=== PATIENT | female | born 1995 | race Caucasian/White ===

== ENCOUNTER 2018-03-26 17:38 | Emergency (ER) | payer OTHER, MEDICAID ==
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
--- NOTE | 2018-03-27 08:52 | CR ---
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 Site : 1995 Study: XRay Spine Cervical [id number]/30/2018 8:17:38 PM Ordering Physician: Ana Henley Final Report: INDICATION: Neck pain, bilateral upper extremity tingling, numbness, no injury TECHNIQUE: Cervical spine radiograph 4 views COMPARISON: None FINDINGS: Bones: No acute fractures or aggressive bone lesions are identified. Alignment is normal. Discs: The disc spaces are unremarkable in appearance. The facet joints are unremarkable. Soft tissue: Unremarkable. No radiopaque foreign bodies are seen. IMPRESSION: 1. No acute osseous injuries or abnormalities are noted. Dictated by Dino Wagner MD @ 03/26/2018 8:22:14 PM Dictated by: Dino Wagner MD @ 03/26/2018 20:22:19 (Electronic Signature) Report Signed by Proxy. CHACHO
--- NOTE | 2018-03-27 08:53 | CR ---
EXAM DATE: 03/26/18 PATIENT'S AGE: 22 Patient: DALILA BROWNING Facility: [place], [place] Site . Site : 1995 Study: XRay Spine Thoracic [id number]/30/2018 8:18:04 PM Ordering Physician: Ana Henley Final Report: INDICATION: Back Pain, no injury TECHNIQUE: Thoracic spine radiograph 2 views COMPARISON: None FINDINGS: Bones: No acute fractures or aggressive bone lesions are identified. Alignment is normal. Discs: The disc spaces are unremarkable in appearance. The facet joints are unremarkable. Soft tissues: Unremarkable. No radiopaque foreign bodies are seen. IMPRESSION: 1. No acute osseous injuries or abnormalities are noted. Dictated by: Dino Wagner MD @ 03/26/2018 20:23:02 (Electronic Signature) Report Signed by Proxy. [facility] HOSPITALWilliams
== END 2018-03-26 21:20 | disposition home or self-care (01) ==
LOC: MW.ED 17:38
DX: M54.6 Pain in thoracic spine (principal); F41.9 Anxiety disorder, unspecified; F32.9 Major depressive disorder, single episode, unspecified; F17.210 Nicotine dependence, cigarettes, uncomplicated; Z79.899 Other long term (current) drug therapy; Z87.39 Personal history of other diseases of the musculoskeletal system and connective tissue
CPT/HCPCS: 72040; 72040-26; 72070; 72070-26; 81025; 99283

== ENCOUNTER 2018-08-20 17:20 | Emergency (ER) | payer MEDICAID ==
[2018-08-20] MEDS ORDERED: Albuterol/Ipratropium 3.0-0.5 MG/3 ML Neb Soln NEB ONE ×3 (17:26→18:29)
[2018-08-20] MEDS ORDERED: predniSONE 20 MG Tab PO ONE (17:36)
[2018-08-20] MEDS ORDERED: Albuterol/Ipratropium 3.0-0.5 MG/3 ML Neb Soln ONE (17:38)
--- NOTE | 2018-08-20 17:39 | EDM.PDOC ---
ED HPI GENERAL MEDICAL PROBLEM - General Chief Complaint: Respiratory Problem Stated Complaint: PT HAS DIFFICULTY BREATHING Time Seen by Provider: 08/20/18 17:33 - History of Present Illness INITIAL COMMENTS - FREE TEXT/NARRATIVE: HISTORY AND PHYSICAL: History of present illness: Patient's a 22-year-old female history of asthma or shortness of breath and wheezing she states her wheezing is first breath has been unresponsive to her inhaler she denies fever chills nausea vomiting chest pain or other complaints. Review of systems: As per history of present illness and below otherwise all systems reviewed and negative. Past medical history: As per history of present illness and as reviewed below otherwise noncontributory. Surgical history: As per history of present illness and as reviewed below otherwise noncontributory. Social history: No reported history of drug or alcohol abuse. Family history: As per history of present illness and as reviewed below otherwise noncontributory. Physical exam: HEENT: Atraumatic, normocephalic, pupils reactive, negative for conjunctival pallor or scleral icterus, mucous membranes moist, throat clear, neck supple, nontender, trachea midline. Lungs: Markedly diminished with an expiratory wheezing, breath sounds equal bilaterally, chest nontender. Heart: S1S2, regular, negative for clicks, rubs, or JVD. Abdomen: Soft, nondistended, nontender. Negative for masses or hepatosplenomegaly. Negative for costovertebral tenderness. Pelvis: Stable nontender. Genitourinary: Deferred. Rectal: Deferred. Extremities: Atraumatic, negative for cords or calf pain. Neurovascular unremarkable. Neuro: Awake, alert, oriented. Cranial nerves II through XII unremarkable. Cerebellum unremarkable. Motor and sensory unremarkable throughout. Exam nonfocal. Diagnostics: None Therapeutics: Albuterol ipratropium nebulizer prednisone 60 mg by mouth Impression: 1 acute asthmatic exacerbation Definitive disposition and diagnosis as appropriate pending reevaluation and review of above. - Related Data Allergies Allergy/AdvReac Type Severity Reaction Status Date / Time clindamycin Allergy Difficulty Verified 08/20/18 17:29 Breathing sulfamethoxazole Allergy Difficulty Verified 08/20/18 17:29 [From Bactrim] Breathing trimethoprim [From Bactrim] Allergy Difficulty Verified 08/20/18 17:29 Breathing Home Meds: Home Meds Albuterol [IJD: Albuterol HFA] 2 puff .XX 03/26/18 [History] Past Medical History HEENT 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: Allergic Rhinitis Respiratory 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: Asthma Musculoskeletal 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: Fracture, Other (See Below) Other Musculoskeletal History: right foot fx with repair x2 Psychiatric 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: Anxiety, Depression - Infectious Disease History Infectious Disease 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: Chicken Pox Social & Family History - Family History Family Medical History: Noncontributory - Tobacco Use Smoking Status *Q: Light Tobacco Smoker Years of Tobacco use: 3 Packs/Tins Daily: 0.3 Second Hand Smoke Exposure: Yes - Caffeine Use Caffeine Use: Reports: Energy Drinks - Recreational Drug Use Recreational Drug Use: No ED ROS GENERAL - Review of Systems Review Of Systems: ROS reveals no pertinent complaints other than HPI. ED EXAM, GENERAL - Physical Exam Exam: See Below (See dictation) Course - Vital Signs Last Recorded V/S: Last Vital Signs Temp 36.7 C 08/20/18 17:29 Pulse 120 H 08/20/18 18:43 Resp 20 08/20/18 18:43 BP 139/101 H 08/20/18 17:29 Pulse Ox 96 08/20/18 18:43 - Orders/Labs/Meds Orders: Active Orders 24 hr Category Date Time Status RT Aerosol Therapy [RC] ASDIRECTED Care 08/20/18 17:26 Active RT Aerosol Therapy [RC] ASDIRECTED Care 08/20/18 17:40 Active RT Aerosol Therapy [RC] ASDIRECTED Care 08/20/18 18:30 Active Chest 1V Frontal [CR] Stat Exams 08/20/18 18:36 Taken Meds: Medications Discontinued Medications Generic Name Dose Route Start Last Admin Trade Name Jovon PRN Reason Stop Dose Admin Albuterol/Ipratropium 3 ml 08/20/18 17:26 08/20/18 17:40 Duoneb 3.0-0.5 Mg/3 Ml NEB 08/20/18 17:27 3 ml ONETIME ONE Administration Albuterol/Ipratropium 3 ml 08/20/18 17:40 08/20/18 17:41 Duoneb 3.0-0.5 Mg/3 Ml NEB 08/20/18 17:41 3 ml ONETIME ONE Administration Albuterol/Ipratropium Confirm 08/20/18 17:38 08/20/18 17:42 Duoneb 3.0-0.5 Mg/3 Ml Administered 08/20/18 17:39 Not Given Dose 3 ml .ROUTE .STK-MED ONE Albuterol/Ipratropium 3 ml 08/20/18 18:29 08/20/18 18:33 Duoneb 3.0-0.5 Mg/3 Ml NEB 08/20/18 18:30 3 ml ONETIME ONE Administration Lorazepam 1 mg 08/20/18 18:35 08/20/18 18:41 Ativan IVPUSH 08/20/18 18:36 1 mg ONETIME ONE Administration Prednisone 40 mg 08/20/18 17:36 08/20/18 17:40 Prednisone PO 08/20/18 17:37 40 mg ONETIME ONE Administration Departure - Departure Time of Disposition: 20:17 Disposition: Home, Self-Care 01 Condition: Good Clinical Impression: Exacerbation of asthma - Discharge Information *PRESCRIPTION DRUG MONITORING PROGRAM REVIEWED*: Not Applicable *COPY OF PRESCRIPTION DRUG MONITORING REPORT IN PATIENT LEENA: Not Applicable Forms: ED Department Discharge Additional Instructions: The following information is given to patients seen in the emergency department who are being discharged to home. This information is to outline your options for follow-up care. We provide all patients seen in our emergency department with a follow-up referral. The need for follow-up, as well as the timing and circumstances, are variable depending upon the specifics of your emergency department visit. If you don't have a primary care physician on staff, we will provide you with a referral. We always advise you to contact your personal physician following an emergency department visit to inform them of the circumstance of the visit and for follow-up with them and/or the need for any referrals to a consulting specialist. The emergency department will also refer you to a specialist when appropriate. This referral assures that you have the opportunity for followup care with a specialist. All of these measure are taken in an effort to provide you with optimal care, which includes your followup. Under all circumstances we always encourage you to contact your private physician who remains a resource for coordinating your care. When calling for followup care, please make the office aware that this follow-up is from your recent emergency room visit. If for any reason you are refused follow-up, please contact the [facility] emergency department at and asked to speak to the emergency department charge nurse. Albuterol as directed Medrol as prescribed follow-up primary medical doctor 1-2 days and return as needed as discussed - My Orders Last 24 Hours: My Active Orders 08/20/18 17:40 RT Aerosol Therapy [RC] ASDIRECTED 08/20/18 18:30 RT Aerosol Therapy [RC] ASDIRECTED 08/20/18 18:36 Chest 1V Frontal [CR] Stat - Assessment/Plan Last 24 Hours: My Active Orders 08/20/18 17:40 RT Aerosol Therapy [RC] ASDIRECTED 08/20/18 18:30 RT Aerosol Therapy [RC] ASDIRECTED 08/20/18 18:36 Chest 1V Frontal [CR] Stat
[2018-08-20] MEDS ORDERED: LORazepam 2 MG/ML SDV IVPUSH ONE (18:35)
--- NOTE | 2018-08-21 10:21 | CR ---
EXAM DATE: 08/20/18 PATIENT'S AGE: 22 Patient: DALILA BROWNING Facility: [place], [place] Site . Site : 1995 Study: XRay Chest [id number]/24/2018 6:54:59 PM Ordering Physician: Ana Henley Final Report: INDICATION: Shortness of breath. TECHNIQUE: Single view of the chest. COMPARISON: None. FINDINGS: Heart and mediastinum are normal. Lungs are clear. No consolidations or pleural effusions are identified. Trachea is midline. IMPRESSION: No evidence of acute disease. Dictated by Miguelito Membreno MD @ Aug 20 2018 7:05PM (Electronic Signature) Report Signed by Proxy. CHACHO
== END 2018-08-20 20:30 | disposition home or self-care (01) ==
LOC: MW.ED 17:20
DX: J45.901 Unspecified asthma with (acute) exacerbation (principal); F17.210 Nicotine dependence, cigarettes, uncomplicated; F32.9 Major depressive disorder, single episode, unspecified; F41.9 Anxiety disorder, unspecified; Z88.1 Allergy status to other antibiotic agents; Z88.2 Allergy status to sulfonamides; Z79.899 Other long term (current) drug therapy
CPT/HCPCS: 71045; 96374; 99285; A9270; J2060; J7620-GY

== ENCOUNTER 2018-08-20 22:45 | Emergency (ER) | payer MEDICAID ==
[~2018-08-20 22:45] MED LIST: Albuterol/Ipratropium 3.0-0.5 MG/3 ML Neb Soln ONE
--- NOTE | 2018-08-20 23:46 | EDM.PDOC ---
ED HPI GENERAL MEDICAL PROBLEM - General Chief Complaint: Respiratory Problem Stated Complaint: PT HAS DIFFICULTY BREATHING Time Seen by Provider: 08/20/18 23:00 - History of Present Illness INITIAL COMMENTS - FREE TEXT/NARRATIVE: HISTORY AND PHYSICAL: History of present illness: Patient 22-year-old female who was seen earlier in the emergency department for an asthmatic exacerbation returns with shortness of breath and wheezing Review of systems: As per history of present illness and below otherwise all systems reviewed and negative. Past medical history: As per history of present illness and as reviewed below otherwise noncontributory. Surgical history: As per history of present illness and as reviewed below otherwise noncontributory. Social history: No reported history of drug or alcohol abuse. Family history: As per history of present illness and as reviewed below otherwise noncontributory. Physical exam: HEENT: Atraumatic, normocephalic, pupils reactive, negative for conjunctival pallor or scleral icterus, mucous membranes moist, throat clear, neck supple, nontender, trachea midline. Lungs: Slightly diminished in extra wheezing noted breath sounds equal bilaterally, chest nontender. Heart: S1S2, regular, negative for clicks, rubs, or JVD. Abdomen: Soft, nondistended, nontender. Negative for masses or hepatosplenomegaly. Negative for costovertebral tenderness. Pelvis: Stable nontender. Genitourinary: Deferred. Rectal: Deferred. Extremities: Atraumatic, negative for cords or calf pain. Neurovascular unremarkable. Neuro: Awake, alert, oriented. Cranial nerves II through XII unremarkable. Cerebellum unremarkable. Motor and sensory unremarkable throughout. Exam nonfocal. Diagnostics: None Therapeutics: Albuterol ipratropium nebulizer and BiPAP Impression: 1 asthmatic exacerbation Definitive disposition and diagnosis as appropriate pending reevaluation and review of above. - Related Data Allergies Allergy/AdvReac Type Severity Reaction Status Date / Time clindamycin Allergy Difficulty Verified 08/20/18 22:51 Breathing sulfamethoxazole Allergy Difficulty Verified 08/20/18 22:51 [From Bactrim] Breathing trimethoprim [From Bactrim] Allergy Difficulty Verified 08/21/18 17:41 Breathing Home Meds: Home Meds Albuterol [IJD: Albuterol HFA] 2 puff INH ASDIRECTED PRN 03/26/18 [History] Dextroamphetamine/Amphetamine [Adderall Xr 20 mg Capsule] 20 mg PO DAILY [History] LORazepam [Ativan] 2 mg PO BID PRN 08/21/18 [History] Lurasidone HCl [Latuda] 40 mg PO DAILY 08/21/18 [History] l-Norgest/E.estradion-E.estrad [Seasonique 0.15-0.03-0.01] 1 each PO DAILY 08/21 [History] Past Medical History HEENT 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: Allergic Rhinitis Respiratory 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: Asthma Musculoskeletal 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: Fracture, Other (See Below) Other Musculoskeletal History: right foot fx with repair x2 Psychiatric 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: Anxiety, Depression - Infectious Disease History Infectious Disease 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: None Social & Family History - Family History Family Medical History: Noncontributory - Tobacco Use Smoking Status *Q: Current Every Day Smoker Years of Tobacco use: 3 Packs/Tins Daily: 0.1 - Caffeine Use Caffeine Use: Reports: Energy Drinks - Recreational Drug Use Recreational Drug Use: No ED ROS GENERAL - Review of Systems Review Of Systems: ROS reveals no pertinent complaints other than HPI. ED EXAM, GENERAL - Physical Exam Exam: See Below (See dictation) Course - Vital Signs Last Recorded V/S: Last Vital Signs Temp 36.6 C 08/20/18 22:51 Pulse 112 H 08/21/18 03:25 Resp 20 08/21/18 03:25 BP 133/75 08/21/18 03:25 Pulse Ox 95 08/21/18 03:25 - Orders/Labs/Meds Labs: Laboratory Tests 08/20/18 Range/Units 23:25 ABG pH 7.405 (7.35-7.45) ABG pCO2 33 L (35-45) mmHG ABG pO2 77 (75-100) mmHG ABG HCO3 20 L (22-26) mEq/L ABG Total CO2 18.2 ABG Base Excess -3.5 L (-2.0-2.0) Meds: Medications Discontinued Medications Generic Name Dose Route Start Last Admin Trade Name Freq PRN Reason Stop Dose Admin Albuterol/Ipratropium 3 ml 08/21/18 01:07 08/21/18 01:15 Duoneb 3.0-0.5 Mg/3 Ml NEB 08/21/18 01:08 3 ml ONETIME ONE Administration Albuterol/Ipratropium Confirm 08/20/18 22:44 Duoneb 3.0-0.5 Mg/3 Ml Administered 08/20/18 22:45 Dose 3 ml .ROUTE .STK-MED ONE Methylprednisolone Sodium Succinate 125 mg 08/21/18 02:20 08/21/18 02:33 Solu-Medrol IM 08/21/18 02:21 125 mg ONETIME ONE Administration Departure - Departure Time of Disposition: 08:11 Disposition: Home, Self-Care 01 Clinical Impression: Dyspnea - Discharge Information *PRESCRIPTION DRUG MONITORING PROGRAM REVIEWED*: Not Applicable *COPY OF PRESCRIPTION DRUG MONITORING REPORT IN PATIENT LEENA: Not Applicable Instructions: Shortness of Breath, Adult, [id number] Referrals: PCP,None [Primary Care Provider] - Forms: ED Department Discharge
[2018-08-21] MEDS ORDERED: Albuterol/Ipratropium 3.0-0.5 MG/3 ML Neb Soln NEB ONE (01:07)
[2018-08-21] MEDS ORDERED: methylPREDNISolone Sodium Succinate 125 MG/2 ML SDV IM ONE (02:20)
== END 2018-08-21 03:30 | disposition home or self-care (01) ==
LOC: MW.ED 22:45
DX: J45.901 Unspecified asthma with (acute) exacerbation (principal); F17.210 Nicotine dependence, cigarettes, uncomplicated; Z88.1 Allergy status to other antibiotic agents; Z88.2 Allergy status to sulfonamides
CPT/HCPCS: 36600; 82803; 94660; 96374; 99285; J2930; J7620-GY

== ENCOUNTER 2018-08-21 17:30 | Observation (INO) | payer MEDICAID ==
[2018-08-21] MEDS ORDERED: Albuterol/Ipratropium 3.0-0.5 MG/3 ML Neb Soln NEB ONE (17:48)
[2018-08-21] MEDS ORDERED: methylPREDNISolone Sodium Succinate 125 MG/2 ML SDV IVPUSH ONE (17:48)
[2018-08-21] MEDS ORDERED: Sodium Chloride 0.9% 1,000 ML IV ONE (17:49)
[2018-08-21] MEDS ORDERED: Magnesium Sulfate/Water 2 GM in Premix Bag 1 BAG IV ONE (17:54)
[2018-08-21] MEDS ORDERED: LORazepam 2 MG/ML SDV IVPUSH ONE (17:54)
--- NOTE | 2018-08-21 17:57 | EDM.PDOC ---
ED HPI GENERAL MEDICAL PROBLEM - General Chief Complaint: Respiratory Problem Stated Complaint: DIFF BREATHING/FAST HEARTBEAT Time Seen by Provider: 08/21/18 17:55 Source of Information: Reports: Patient - History of Present Illness INITIAL COMMENTS - FREE TEXT/NARRATIVE: HISTORY AND PHYSICAL: History of present illness: []Patient presents with asthma exacerbation she is been in on the and through the night on the On a BiPAP f a brief. She presents with shortness of breath and wheeze again she does have nebs and prednisone at home she is essentially failed conservative management No fever nausea vomiting chills sweats Review of systems: As per history of present illness and below otherwise all systems reviewed and negative. Past medical history: As per history of present illness and as reviewed below otherwise noncontributory. Surgical history: As per history of present illness and as reviewed below otherwise noncontributory. Social history: No reported history of drug or alcohol abuse. Family history: As per history of present illness and as reviewed below otherwise noncontributory. Physical exam: HEENT: Atraumatic, normocephalic, pupils reactive, negative for conjunctival pallor or scleral icterus, mucous membranes moist, throat clear, neck supple, nontender, trachea midline. Lungs: Expiratory wheeze throughout, breath sounds equal bilaterally, chest nontender. Heart: S1S2, regular, negative for clicks, rubs, or JVD. Abdomen: Soft, nondistended, nontender. Negative for masses or hepatosplenomegaly. Negative for costovertebral tenderness. Pelvis: Stable nontender. Genitourinary: Deferred. Rectal: Deferred. Extremities: Atraumatic, negative for cords or calf pain. Neurovascular unremarkable. Neuro: Awake, alert, oriented. Cranial nerves II through XII unremarkable. Cerebellum unremarkable. Motor and sensory unremarkable throughout. Exam nonfocal. Diagnostics: [CBC CMP UA hCG Chest 1 view ABG ] Therapeutics: [ 1 L normal saline bolus Magnesium 2 mg IV Ativan 1 mg IV DuoNeb Solu-Medrol 125 mg IV ] Impression: [ asthma exacerbation ] Definitive disposition and diagnosis as appropriate pending reevaluation and review of above. - Related Data Allergies Allergy/AdvReac Type Severity Reaction Status Date / Time clindamycin Allergy Difficulty Verified 08/20/18 22:51 Breathing sulfamethoxazole Allergy Difficulty Verified 08/20/18 22:51 [From Bactrim] Breathing trimethoprim [From Bactrim] Allergy Difficulty Verified 08/21/18 17:41 Breathing Home Meds: Home Meds Albuterol [IJD: Albuterol HFA] 2 puff INH ASDIRECTED PRN 03/26/18 [History] Past Medical History HEENT 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: Allergic Rhinitis Respiratory 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: Asthma Musculoskeletal 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: Fracture, Other (See Below) Other Musculoskeletal History: right foot fx with repair x2 Psychiatric 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: Anxiety, Depression - Infectious Disease History Infectious Disease 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: None Social & Family History - Family History Family Medical History: Noncontributory - Tobacco Use Smoking Status *Q: Current Every Day Smoker Years of Tobacco use: 3 Packs/Tins Daily: 1 - Caffeine Use Caffeine Use: Reports: Energy Drinks - Recreational Drug Use Recreational Drug Use: No ED ROS GENERAL - Review of Systems Review Of Systems: See Below ED EXAM, GENERAL - Physical Exam Exam: See Below Course - Vital Signs Last Recorded V/S: Last Vital Signs Temp 98.5 F 08/21/18 17:30 Pulse 138 H 08/21/18 17:30 Resp 20 08/21/18 17:30 BP 141/75 H 08/21/18 17:30 Pulse Ox 95 08/21/18 17:30 - Orders/Labs/Meds Orders: Active Orders 24 hr Category Date Time Status EKG Documentation Completion [RC] STAT Care 08/21/18 17:44 Active RT Aerosol Therapy [RC] ASDIRECTED Care 08/21/18 17:48 Active Chest 1V Frontal [CR] Stat Exams 08/21/18 17:48 Ordered COMPREHENSIVE METABOLIC PN,CMP [CHEM] Stat Lab 08/21/18 18:15 Received UA W/MICROSCOPIC [URIN] Stat Lab 08/21/18 17:51 Ordered Magnesium Sulfate/Water [Magnesium Sulfate 2 GM in Med 08/21/18 17:54 Active Water 50 ML] 2 gm Premix Bag 1 bag IV ONETIME Sodium Chloride 0.9% [Normal Saline] 1,000 ml Med 08/21/18 17:49 Active IV STAT Medication Orders Sodium Chloride (Normal Saline) 1,000 mls @ 999 mls/hr IV STAT ONE Stop: 08/21/18 18:49 Last Admin: 08/21/18 18:19 Dose: 300 mls/hr Magnesium Sulfate 2 gm/ Premix 50 mls @ 25 mls/hr IV ONETIME ONE Stop: 08/21/18 19:53 Last Admin: 08/21/18 18:24 Dose: 25 mls/hr Labs: Laboratory Tests 08/21/18 08/21/18 Range/Units 18:05 18:15 WBC 21.50 H (4.0-11.0) K/uL RBC 4.28 L (4.30-5.90) M/uL Hgb 13.5 (12.0-16.0) g/dL Hct 39.1 (36.0-46.0) % MCV 91.4 (80.0-98.0) fL MCH 31.5 (27.0-32.0) pg MCHC 34.5 (31.0-37.0) g/dL RDW Std Deviation 41.4 (28.0-62.0) fl RDW Coeff of Dillon 12 (11.0-15.0) % Plt Count 277 (150-400) K/uL MPV 10.80 (7.40-12.00) fL Neut % (Auto) 85.2 H (48.0-80.0) % Lymph % (Auto) 3.8 L (16.0-40.0) % [place] % (Auto) 11.0 (0.0-15.0) % Eos % (Auto) 0.0 (0.0-7.0) % Baso % (Auto) 0.0 (0.0-1.5) % Neut # (Auto) 18.3 H (1.4-5.7) K/uL Lymph # (Auto) 0.8 (0.6-2.4) K/uL [place] # (Auto) 2.4 H (0.0-0.8) K/uL Eos # (Auto) 0.0 (0.0-0.7) K/uL Baso # (Auto) 0.0 (0.0-0.1) K/uL Nucleated RBC % 0.0 /100WBC Nucleated RBCs # 0 K/uL ABG pH 7.442 (7.35-7.45) ABG pCO2 34 L (35-45) mmHG ABG pO2 209 H (75-100) mmHG ABG HCO3 23 (22-26) mEq/L ABG Total CO2 24 ABG Base Excess -1 (-2.0-2.0) Meds: Medications Generic Name Dose Route Start Last Admin Trade Name Freq PRN Reason Stop Dose Admin Sodium Chloride 1,000 mls @ 999 mls/hr 08/21/18 17:49 08/21/18 18:19 Normal Saline IV 08/21/18 18:49 300 mls/hr STAT ONE Administration Magnesium Sulfate 2 gm/ Premix 50 mls @ 25 mls/hr 08/21/18 17:54 08/21/18 18: 24 IV 08/21/18 19:53 25 mls/hr ONETIME ONE Administration Discontinued Medications Generic Name Dose Route Start Last Admin Trade Name Freq PRN Reason Stop Dose Admin Albuterol/Ipratropium 3 ml 08/21/18 17:48 08/21/18 18:00 Duoneb 3.0-0.5 Mg/3 Ml NEB 08/21/18 17:49 3 ml ONETIME ONE Administration Lorazepam 1 mg 08/21/18 17:54 08/21/18 18:24 Ativan IVPUSH 08/21/18 17:55 1 mg ONETIME ONE Administration Methylprednisolone Sodium Succinate 125 mg 08/21/18 17:48 08/21/18 18:00 Solu-Medrol IVPUSH 08/21/18 17:49 125 mg ONETIME ONE Administration Departure - Departure Time of Disposition: 18:46 Disposition: Refer to Observation Condition: Fair Clinical Impression: Asthma exacerbation - Discharge Information Referrals: PCP,None [Primary Care Provider] - Forms: ED Department Discharge - My Orders Last 24 Hours: My Active Orders 08/21/18 17:44 EKG Documentation Completion [RC] STAT 08/21/18 17:48 RT Aerosol Therapy [RC] ASDIRECTED Chest 1V Frontal [CR] Stat 08/21/18 17:49 Sodium Chloride 0.9% [Normal Saline] 1,000 ml IV STAT 08/21/18 17:51 UA W/MICROSCOPIC [URIN] Stat 08/21/18 17:54 Magnesium Sulfate/Water [Magnesium Sulfate 2 GM in Water 50 ML] 2 gm Premix Bag 1 bag IV ONETIME 08/21/18 18:15 COMPREHENSIVE METABOLIC PN,CMP [CHEM] Stat - Assessment/Plan Last 24 Hours: My Active Orders 08/21/18 17:44 EKG Documentation Completion [RC] STAT 08/21/18 17:48 RT Aerosol Therapy [RC] ASDIRECTED Chest 1V Frontal [CR] Stat 08/21/18 17:49 Sodium Chloride 0.9% [Normal Saline] 1,000 ml IV STAT 08/21/18 17:51 UA W/MICROSCOPIC [URIN] Stat 08/21/18 17:54 Magnesium Sulfate/Water [Magnesium Sulfate 2 GM in Water 50 ML] 2 gm Premix Bag 1 bag IV ONETIME 08/21/18 18:15 COMPREHENSIVE METABOLIC PN,CMP [CHEM] Stat
[2018-08-21] MEDS ORDERED: Sodium Chloride 0.9% 2.5 ML Syringe FLUSH PRN (18:56)
[2018-08-21] MEDS ORDERED: Ondansetron 4 MG Tab.DIS PO PRN (18:56)
[2018-08-21] MEDS ORDERED: Morphine 2 MG/ML Syringe IVPUSH PRN (18:56)
[2018-08-21] MEDS ORDERED: oxyCODONE 5 MG Tab PO PRN (18:56)
[2018-08-21] MEDS ORDERED: Temazepam 15 MG Cap PO PRN (18:56)
[2018-08-21] MEDS ORDERED: Docusate Sodium 100 MG Cap PO PRN (18:56)
[2018-08-21] MEDS ORDERED: Sodium Chloride 0.9% 10 ML Syringe FLUSH PRN (18:56)
[2018-08-21] MEDS ORDERED: Acetaminophen 325 MG Tab PO PRN (18:56)
[2018-08-21] MEDS ORDERED: Albuterol 0.083% 2.5 MG/3 ML Neb Soln NEB PRN (18:56)
[2018-08-21 19:03] LABS: CHLORIDE,CL 108 mmol/L (98-107); SODIUM,NA 140 mmol/L (136-145)
[2018-08-22] MEDS: methylPREDNISolone Sodium Succinate 125 MG/2 ML SDV IVPUSH SCH ×2 (01:11→09:07)
[2018-08-22 05:50] LABS: CHLORIDE,CL 111 mmol/L (98-107); SODIUM,NA 141 mmol/L (136-145)
--- NOTE | 2018-08-22 07:28 | PCM.HP ---
<Juanjo Curran - Last Filed: 08/22/18 07:30> H&P History of Present Illness - General Date of Service: 08/22/18 Admit Problem/Dx: Admission Diagnosis/Problem Admission Diagnosis/Problem Asthma Source of Information: Patient History Limitations: Reports: No Limitations - History of Present Illness Initial Comments - Free Text/Narative: 22F with a history of Asthma, Tobacco abuse, ADHD, Depression that presented to the ER last night w/ a chief complaint of shortness of breath that started two days ago. Patient says that she was resting when the symptoms began. She tried giving herself a nebulizer multiple times at home prior to presenting to the ER but the symptoms persisted so she came in. She was admitted because of concerns of poor breath sounds, siginificant wheezing. Patient this morning says that she feels better. She is able to maintain oxygen on room air without difficulty. Complains of a mild cough. When asked about triggers, boyfriend on room says he has been undergoing a construction project in his garage with a boat and thus she has been around all sorts of chemicals and a lot of dust. Patient also smokes cigarettes occasionally. She has also been around a new dog. ER Course: Ativan 1mg IV x1 Solumedrol 125mg x1 Magnesium 2g IV x1 NS bolus CXR unremarkable - Related Data Allergies/Adverse Reactions: Allergies Allergy/AdvReac Type Severity Reaction Status Date / Time clindamycin Allergy Difficulty Verified 08/20/18 22:51 Breathing sulfamethoxazole Allergy Difficulty Verified 08/20/18 22:51 [From Bactrim] Breathing trimethoprim [From Bactrim] Allergy Difficulty Verified 08/21/18 17:41 Breathing Home Medications: Home Meds Albuterol [IJD: Albuterol HFA] 2 puff INH ASDIRECTED PRN 03/26/18 [History] Dextroamphetamine/Amphetamine [Adderall Xr 20 mg Capsule] 20 mg PO DAILY [History] LORazepam [Ativan] 2 mg PO BID PRN 08/21/18 [History] Lurasidone HCl [Latuda] 40 mg PO DAILY 08/21/18 [History] l-Norgest/E.estradion-E.estrad [Seasonique 0.15-0.03-0.01] 1 each PO DAILY 08/21 [History] Budesonide [Pulmicort Flexhaler] 180 mcg IH BID 30 Days #1 aer.pow.ba 08/22/18 [ Rx] Levalbuterol Tartrate [Levalbuterol Tartrate Hfa] 15 gm IH Q4H PRN 30 Days #1 hfa.aer.ad 08/22/18 [Rx] predniSONE [Prednisone] 40 mg PO DAILY 4 Days #8 tablet 08/22/18 [Rx] Past Medical History HEENT 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: Allergic Rhinitis Respiratory 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: Asthma Musculoskeletal 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: Fracture, Other (See Below) Other Musculoskeletal History: right foot fx with repair x2 Psychiatric 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: ADHD, Anxiety, Depression - Infectious Disease History Infectious Disease 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: None Social & Family History - Family History Family Medical History: Noncontributory HEENT: Reports: None Cardiac: Reports: None Respiratory: Reports: None - Tobacco Use Smoking Status *Q: Current Every Day Smoker Years of Tobacco use: 3 Packs/Tins Daily: 1 Second Hand Smoke Exposure: Yes - Caffeine Use Caffeine Use: Reports: Soda - Recreational Drug Use Recreational Drug Use: No H&P Review of Systems - Review of Systems: Review Of Systems: ROS reveals no pertinent complaints other than HPI. Exam - Exam Exam: See Below - Vital Signs Vital Signs: Last Vital Signs Temp 36.6 C 08/22/18 04:00 Pulse 116 H 08/22/18 04:00 Resp 17 08/22/18 04:00 BP 138/83 08/22/18 04:00 Pulse Ox 95 08/22/18 04:00 Weight: 58.4 kg - Exam General: Alert, Oriented, 4 HEENT: PERRLA, Hearing Intact, Mucosa Moist & Clarks, Nares Patent, Normal Nasal Septum, Posterior Pharynx Clear, Conjunctiva Clear, EOMI, EACs Clear, TMs Clear Neck: Supple, Trachea Midline, 2 Lungs: Normal Respiratory Effort, Wheezing. No: Crackles, Rales, Rhonchi Cardiovascular: Regular Rate, Regular Rhythm GI/Abdominal Exam: Normal Bowel Sounds, Soft, Non-Tender, No Organomegaly, No Distention, No Abnormal Bruit, No Mass (Female) Exam: Normal External Exam, Normal Speculum Exam, Normal Bimanual Exam Back Exam: Normal Inspection, Full Range of Motion, NT Extremities: Normal Inspection, Normal Range of Motion, Non-Tender, No Pedal Edema, Normal Capillary Refill Skin: Warm, Dry, Intact Neurological: Cranial Nerves Intact, Reflexes Equal Bilateral Neuro Extensive - Mental Status: Alert, Oriented x3, Normal Mood/Affect, Normal Cognition Neuro Extensive - Motor, Sensory, Reflexes: CN II-XII Intact, Normal Gait, Normal Reflexes Psychiatric: Alert, Normal Affect, Anxious - Patient Data Lab Results Last 24 hrs: Laboratory Results - last 24 hr 08/21/18 08/21/18 08/21/18 Range/Units 18:05 18:15 18:15 WBC 21.50 H (4.0-11.0) K/uL RBC 4.28 L (4.30-5.90) M/uL Hgb 13.5 (12.0-16.0) g/dL Hct 39.1 (36.0-46.0) % MCV 91.4 (80.0-98.0) fL MCH 31.5 (27.0-32.0) pg MCHC 34.5 (31.0-37.0) g/dL RDW Std Deviation 41.4 (28.0-62.0) fl RDW Coeff of Dillon 12 (11.0-15.0) % Plt Count 277 (150-400) K/uL MPV 10.80 (7.40-12.00) fL Neut % (Auto) 85.2 H (48.0-80.0) % Lymph % (Auto) 3.8 L (16.0-40.0) % [place] % (Auto) 11.0 (0.0-15.0) % Eos % (Auto) 0.0 (0.0-7.0) % Baso % (Auto) 0.0 (0.0-1.5) % Neut # (Auto) 18.3 H (1.4-5.7) K/uL Lymph # (Auto) 0.8 (0.6-2.4) K/uL [place] # (Auto) 2.4 H (0.0-0.8) K/uL Eos # (Auto) 0.0 (0.0-0.7) K/uL Baso # (Auto) 0.0 (0.0-0.1) K/uL Nucleated RBC % 0.0 /100WBC Nucleated RBCs # 0 K/uL ABG pH 7.442 (7.35-7.45) ABG pCO2 34 L (35-45) mmHG ABG pO2 209 H (75-100) mmHG ABG HCO3 23 (22-26) mEq/L ABG Total CO2 24 ABG Base Excess -1 (-2.0-2.0) Sodium 140 (136-145) mmol/L Potassium 3.5 (3.5-5.1) mmol/L Chloride 108 H (98-107) mmol/L Carbon Dioxide 20.3 L (21.0-32.0) mmol/L BUN 14 (7.0-18.0) mg/dL Creatinine 0.7 (0.6-1.0) mg/dL Est Cr Clr Drug Dosing 94.32 mL/min Estimated GFR (MDRD) > 60.0 ml/min Glucose 114 H (74-106) mg/dL Calcium 8.9 (8.5-10.1) mg/dL Total Bilirubin 0.2 (0.2-1.0) mg/dL AST 14 L (15-37) IU/L ALT 18 (14-63) IU/L Alkaline Phosphatase 63 (46-116) U/L Total Protein 7.0 (6.4-8.2) g/dL Albumin 3.5 (3.4-5.0) g/dL Globulin 3.5 (2.0-3.5) g/dL Albumin/Globulin Ratio 1.0 L (1.3-2.8) 08/22/18 08/22/18 Range/Units 05:25 05:25 WBC 19.07 H (4.0-11.0) K/uL RBC 4.00 L (4.30-5.90) M/uL Hgb 12.4 (12.0-16.0) g/dL Hct 37.0 (36.0-46.0) % MCV 92.5 (80.0-98.0) fL MCH 31.0 (27.0-32.0) pg MCHC 33.5 (31.0-37.0) g/dL RDW Std Deviation 42.3 (28.0-62.0) fl RDW Coeff of Dillon 13 (11.0-15.0) % Plt Count 269 (150-400) K/uL MPV 10.50 (7.40-12.00) fL Neut % (Auto) 92.3 H (48.0-80.0) % Lymph % (Auto) 3.6 L (16.0-40.0) % [place] % (Auto) 4.1 (0.0-15.0) % Eos % (Auto) 0.0 (0.0-7.0) % Baso % (Auto) 0.0 (0.0-1.5) % Neut # (Auto) 17.6 H (1.4-5.7) K/uL Lymph # (Auto) 0.7 (0.6-2.4) K/uL [place] # (Auto) 0.8 (0.0-0.8) K/uL Eos # (Auto) 0.0 (0.0-0.7) K/uL Baso # (Auto) 0.0 (0.0-0.1) K/uL Nucleated RBC % 0.0 /100WBC Nucleated RBCs # 0 K/uL ABG pH (7.35-7.45) ABG pCO2 (35-45) mmHG ABG pO2 (75-100) mmHG ABG HCO3 (22-26) mEq/L ABG Total CO2 ABG Base Excess (-2.0-2.0) Sodium 141 (136-145) mmol/L Potassium 4.8 (3.5-5.1) mmol/L Chloride 111 H (98-107) mmol/L Carbon Dioxide 23.4 (21.0-32.0) mmol/L BUN 13 (7.0-18.0) mg/dL Creatinine 0.6 (0.6-1.0) mg/dL Est Cr Clr Drug Dosing 110.04 mL/min Estimated GFR (MDRD) > 60.0 ml/min Glucose 139 H (74-106) mg/dL Calcium 8.6 (8.5-10.1) mg/dL Total Bilirubin (0.2-1.0) mg/dL AST (15-37) IU/L ALT (14-63) IU/L Alkaline Phosphatase (46-116) U/L Total Protein (6.4-8.2) g/dL Albumin (3.4-5.0) g/dL Globulin (2.0-3.5) g/dL Albumin/Globulin Ratio (1.3-2.8) Result Diagrams: 08/22/18 05:25 08/22/18 05:25 Problem List Initiated/Reviewed/Updated: Yes Orders Last 24hrs: Active Orders 24 hr Category Date Time Status Patient Status [ADT] Routine ADT 08/21/18 18:56 Active Ambulate [RC] PER UNIT ROUTINE Care 08/21/18 18:58 Active Communication Order [RC] ROUTINE Care 08/21/18 20:27 Active EKG Documentation Completion [RC] STAT Care 08/21/18 17:44 Active Oxygen Therapy [RC] PRN Care 08/21/18 18:56 Active Pulse Oximetry [RC] PRN Care 08/21/18 18:57 Active RT Aerosol Therapy [RC] ASDIRECTED Care 08/21/18 17:48 Active RT Aerosol Therapy [RC] ASDIRECTED Care 08/21/18 19:00 Active Up ad Yasmeen [RC] ASDIRECTED Care 08/21/18 18:56 Active Vital Signs [RC] Q4H Care 08/21/18 18:56 Active Regular Diet [DIET] Diet 08/22/18 Breakfast Active Chest 1V Frontal [CR] Stat Exams 08/21/18 17:48 Taken ABG [BLOOD GAS ARTERIAL] [BG] Routine Lab 08/21/18 19:26 Ordered UA W/MICROSCOPIC [URIN] Stat Lab 08/21/18 17:51 Ordered Acetaminophen [Tylenol] Med 08/21/18 18:56 Active 650 mg PO Q4H PRN Albuterol [Proventil Neb Soln] Med 08/21/18 18:56 Active 2.5 mg NEB Q2H PRN Docusate Sodium [Colace] Med 08/21/18 18:56 Active 100 mg PO BID PRN Morphine Med 08/21/18 18:56 Active 2 mg IVPUSH Q2H PRN Ondansetron [Zofran ODT] Med 08/21/18 18:56 Active 4 mg PO Q6H PRN Sodium Chloride 0.9% [Saline Flush] Med 08/21/18 18:56 Active 10 ml FLUSH ASDIRECTED PRN Sodium Chloride 0.9% [Saline Flush] Med 08/21/18 18:56 Active 2.5 ml FLUSH ASDIRECTED PRN Temazepam [Restoril] Med 08/21/18 18:56 Active 15 mg PO BEDTIME PRN methylPREDNISolone Sod Succ [Solu-MEDROL] Med 08/22/18 02:00 Active 125 mg IVPUSH Q8H oxyCODONE Med 08/21/18 18:56 Active 5 mg PO Q4H PRN Saline Lock Insert [OM.PC] Routine Oth 08/21/18 18:56 Ordered Sequential Compression Device [OM.PC] Per Unit Routine Oth 08/21/18 18:58 Ordered Resuscitation Status Routine Resus Stat 08/21/18 18:56 Ordered Medication Orders Acetaminophen (Tylenol) 650 mg PO Q4H PRN PRN Reason: Pain (Mild 1-3)/fever Albuterol (Proventil Neb Soln) 2.5 mg NEB Q2H PRN PRN Reason: Shortness Of Breath/wheezing Docusate Sodium (Colace) 100 mg PO BID PRN PRN Reason: Constipation Methylprednisolone Sodium Succinate (Solu-Medrol) 125 mg IVPUSH Q8H TRUPTI Last Admin: 08/22/18 01:11 Dose: 125 mg Morphine Sulfate (Morphine) 2 mg IVPUSH Q2H PRN PRN Reason: Pain (severe 7-10) Stop: 08/22/18 18:59 Ondansetron HCl (Zofran Odt) 4 mg PO Q6H PRN PRN Reason: nausea, able to take PO Oxycodone HCl (Oxycodone) 5 mg PO Q4H PRN PRN Reason: Pain (moderate 4-6) Sodium Chloride (Saline Flush) 10 ml FLUSH ASDIRECTED PRN PRN Reason: Keep Vein Open Sodium Chloride (Saline Flush) 2.5 ml FLUSH ASDIRECTED PRN PRN Reason: Keep Vein Open Temazepam (Restoril) 15 mg PO BEDTIME PRN PRN Reason: Sleep Last Admin: 08/21/18 22:35 Dose: 15 mg Assessment/Plan Comment:: Assessment: #1. Asthma Exacerbation #2. Tachycardia #3. History of asthma, depression, ADHD, insomnia Plan: #1. Admit to the floor for observation. Full code. Vital signs per floor routine. Oxygen titration as needed to maintain 89-94%, she is doing very well at the time of this note on room air however. #2. DuoNeb q2h PRN for SOB/Wheezing #3. IV Solumedrol 125mg x1. Will go home on oral prednisone. #4. Discussed with the patient that upon discharge, she should be set up with refills on her rescue inhaler, nebulizer, and also put on a controller medication. She should also be set up for a PFT as an outpatient. Encouraged to quit smoking, avoid triggers like the dust/plexiglass that shes been around and any new pets that she seems to get short of breath around. She is looking for a new PCP here in town. Likely discharge today. <Po Bee - Last Filed: 08/23/18 09:07> H&P History of Present Illness - General Admit Problem/Dx: Admission Diagnosis/Problem Admission Diagnosis/Problem Asthma I seen and examined the patient independently of diagnostic medical sonographer. The patient is a 21-year-old lady who presented to the emergency department on separate occasions in a 24-hour period with the complaint of shortness of breath. She has a long history of asthma. The patient unfortunately still a smoker. She was admitted to observation for steroids given IV and frequent nebulizer treatments. I agree with diagnostic medical sonographer assessment and plan of care. Please see orders. Exam - Vital Signs Vital Signs: Last Vital Signs Temp 36.4 C 08/22/18 11:17 Pulse 107 H 08/22/18 11:17 Resp 20 08/22/18 11:17 BP 111/63 08/22/18 11:17 Pulse Ox 95 08/22/18 11:17 - Patient Data Lab Results Last 24 hrs: Laboratory Results - last 24 hr 08/22/18 Range/Units 10:20 Urine Color YELLOW Urine Appearance CLEAR Urine pH 6.0 (5.0-8.0) Ur Specific [place] 1.025 (1.001-1.035) Urine Protein NEGATIVE (NEGATIVE) mg/dL Urine Glucose (UA) 100 H (NEGATIVE) mg/dL Urine Ketones NEGATIVE (NEGATIVE) mg/dL Urine Occult Blood MODERATE (NEGATIVE) Urine Nitrite POSITIVE H (NEGATIVE) Urine Bilirubin NEGATIVE (NEGATIVE) Urine Urobilinogen 0.2 (<2.0) EU/dL Ur Leukocyte Esterase NEGATIVE (NEGATIVE) Urine RBC 1-3 (0-2/HPF) Urine WBC 0-1 (0-5/HPF) Ur Epithelial Cells RARE (NONE-FEW) Urine Bacteria 3+ H (NEGATIVE) Result Diagrams: 08/22/18 05:25 08/22/18 05:25 Orders Last 24hrs: Active Orders 24 hr Category Date Time Status Ready for Discharge [RC] PER UNIT ROUTINE Care 08/22/18 11:30 Active
[2018-08-22] MEDS ORDERED: Albuterol/Ipratropium 3.0-0.5 MG/3 ML Neb Soln NEB PRN (07:40)
--- NOTE | 2018-08-22 10:49 | CR ---
EXAM DATE: 08/21/18 PATIENT'S AGE: 22 Patient: DALILA BROWNING Facility: [place], [place] Site . Site : 1995 Study: XRay Chest [id number]/[id number] 7:06:07 PM Ordering Physician: Doctor Booker Final Report: INDICATION: Shortness of breath TECHNIQUE: Chest 1 views COMPARISON: 08/20/2018 FINDINGS: Cardiovascular and mediastinum: Heart size and vasculature are normal in caliber and appearance. Lungs and pleural spaces: Lungs are clear. No sign of infiltrate or mass. No sign of pleural effusion. No pneumothorax. Bones and soft tissues: No significant findings. IMPRESSION: No acute findings and no significant changes from the prior exam. Dictated by Christophe Guzman MD @ Aug 21 2018 7:31PM (Electronic Signature) Report Signed by Proxy. CHACHO
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
== END 2018-08-22 13:15 | disposition home or self-care (01) ==
LOC: MW.ED 17:30 → MW.MS 18:59
PROVIDERS: ADMIT Internal Medicine; ATTEND Internal Medicine
DX: J45.901 Unspecified asthma with (acute) exacerbation (principal); F17.210 Nicotine dependence, cigarettes, uncomplicated; F32.9 Major depressive disorder, single episode, unspecified; F41.9 Anxiety disorder, unspecified; G47.00 Insomnia, unspecified; F90.9 Attention-deficit hyperactivity disorder, unspecified type; Z79.52 Long term (current) use of systemic steroids
CPT/HCPCS: 36415; 36600; 71045; 80048; 80053; 81001; 82803; 85025; 93005; 94640; 96365; 96375; 96376; 99285; A9270; G0378; J2060; J2930; J3475; J7040; J7620-GY

== ENCOUNTER 2019-08-02 11:13 | Emergency (ER) | payer MEDICAID ==
[2019-08-02] MEDS ORDERED: Ketorolac 60 MG/2 ML SDV IM ONE (11:40)
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
== END 2019-08-02 13:06 | disposition home or self-care (01) ==
LOC: MW.ED 11:13
DX: S16.1XXA Strain of muscle, fascia and tendon at neck level, initial encounter (principal); M54.6 Pain in thoracic spine; Z88.1 Allergy status to other antibiotic agents; Z88.2 Allergy status to sulfonamides; Y04.2XXA Assault by strike against or bumped into by another person, initial encounter
CPT/HCPCS: 72125; 72128; 96372; 99283; J1885

== ENCOUNTER 2020-08-19 14:59 | Emergency (ER) | payer OTHER, MEDICAID ==
--- NOTE | 2020-08-19 15:06 | EDM.PDOC ---
ED HPI GENERAL MEDICAL PROBLEM - General Chief Complaint: Respiratory Problem Stated Complaint: ASTHMA Time Seen by Provider: 08/19/20 15:03 Source of Information: Reports: Patient History Limitations: Reports: No Limitations - History of Present Illness INITIAL COMMENTS - FREE TEXT/NARRATIVE: HISTORY AND PHYSICAL: History of present illness: Patient is a 24-year-old female who presents to the ED today with concern of asthma exacerbation x1 day. Patient states she has a history of asthma and has an albuterol rescue inhaler, albuterol nebulizers, and is supposed to have a Q [place] steroid inhaler. Patient states that she recently ran out of her Qvar steroid inhaler and has not saved money in order to get another inhaler. Patient states that she does have enough albuterol rescue inhalers and nebulizers available to her at home. Patient states that she does have a prescription for the Qvar steroid inhaler just has not filled this. Patient states that she recently ran out of the Qvar inhaler and is feeling like her asthma is flaring up. Patient states that her symptoms today are typical of her usual asthma exacerbations and states that it feels like a wheezing/tight sensation when she takes a deep breath in. Patient denies any other symptoms or concerns. Patient denies fever, chills, chest pain, shortness of breath, or cough. Denies headache, neck stiff ness, change in vision, syncope, or near syncope. Denies nausea, vomiting, abdominal pain, diarrhea, constipation, or dysuria. Has not noted any blood in urine or stool. Patient has been eating and drinking appropriately. Review of systems: As per history of present illness and below otherwise all systems reviewed and negative. Past medical history: As per history of present illness and as reviewed below otherwise noncontributory. Surgical history: As per history of present illness and as reviewed below otherwise noncontributory. Social history: See social history for further information Family history: As per history of present illness and as reviewed below otherwise noncontributory. Physical exam: General: Patient is alert, oriented, and in no acute distress. Patient sitting comfortably on exam table. HEENT: Atraumatic, normocephalic, pupils equal and reactive bilaterally, negative for conjunctival pallor or scleral icterus, mucous membranes moist, TMs normal bilaterally, throat clear, neck supple, nontender, trachea midline. No drooling or trismus noted. No meningeal signs. No hot potato voice noted. Lungs: Patient speaking clearly without breathlessness, no wheezing or stridor, no accessory muscle use or respiratory distress. Auscultation deferred due to current COV-ID 19 outbreak. Heart: Auscultation deferred due to current COV-ID 19 outbreak. Abdomen: Soft, nondistended, nontender. Negative for masses or hepatosplenomegaly. Negative for costovertebral tenderness. Pelvis: Stable nontender. Genitourinary: Deferred. Rectal: Deferred. Skin: Intact, warm, dry. No lesions or rashes noted. Extremities: Atraumatic, negative for cords or calf pain. Neurovascular unremarkable. Neuro: Awake, alert, oriented. Cranial nerves II through XII unremarkable. Cerebellum unremarkable. Motor and sensory unremarkable throughout. Exam nonfocal. Notes: Signs and symptoms that would prompt return to the ED thoroughly discussed with patient. Discussed importance for follow-up with her primary care provider. Voices understanding and is agreeable to plan of care. Denies any further questions or concerns at this time. Diagnostics: None (EKG, labwork, and CXR offered but patient declines) Therapeutics: Duoneb, Solumedrol Prescription: Prednisone (Patient has albuterol and QVAR RX at pharmacy) Impression: Asthma exacerbation, mild Plan: 1. Use inhalers as prescribed to you prior as directed and as discussed. Take medication as prescribed. 2. Follow-up with a primary care provider as discussed. Return to the ED as needed and as discussed. Definitive disposition and diagnosis as appropriate pending reevaluation and review of above. - Related Data Allergies Allergy/AdvReac Type Severity Reaction Status Date / Time clindamycin Allergy Difficulty Verified 08/19/20 15:06 Breathing sulfamethoxazole Allergy Difficulty Verified 08/19/20 15:06 [From Bactrim] Breathing trimethoprim [From Bactrim] Allergy Difficulty Verified 08/19/20 15:06 Breathing Home Meds: Home Meds Melatonin/Pyridoxine HCl (B6) [Melatonin Tr 10 mg Tablet] 1 tab BEDTIME 08/02/19 [History] Citalopram [Citalopram HBr] 10 mg PO DAILY 08/19/20 [History] LORazepam [Ativan] 1 mg PO ASDIRECTED 08/19/20 [History] predniSONE [Prednisone] 20 mg PO DAILY 5 Days #5 tablet 08/19/20 [Rx] Past Medical History - Past Health History Medical/Surgical History: Denies Medical/Surgical History HEENT 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: Allergic Rhinitis Respiratory 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: Asthma Musculoskeletal 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: Fracture, Other (See Below) Other Musculoskeletal History: right foot fx with repair x2 Psychiatric 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: ADHD, Anxiety, Depression - Infectious Disease History Infectious Disease 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: None - Past Surgical History HEENT Surgical 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: None Respiratory Surgical 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: None Musculoskeletal Surgical 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: None Social & Family History - Family History Family Medical History: Noncontributory HEENT: Reports: None Cardiac: Reports: None Respiratory: Reports: None - Caffeine Use Caffeine Use: Reports: Soda ED ROS GENERAL - Review of Systems Review Of Systems: Comprehensive ROS is negative, except as noted in HPI. ED EXAM, GENERAL - Physical Exam Exam: See Below (see dictation) Course - Vital Signs Last Recorded V/S: Last Vital Signs Temp 97.5 F 08/19/20 15:55 Pulse 88 08/19/20 15:55 Resp 18 08/19/20 15:55 BP 113/84 08/19/20 15:55 Pulse Ox 98 08/19/20 15:55 - Orders/Labs/Meds Meds: Medications Discontinued Medications Generic Name Dose Route Start Last Admin Trade Name Jovon PRN Reason Stop Dose Admin Albuterol/Ipratropium 3 ml 08/19/20 15:23 08/19/20 15:28 Duoneb 3.0-0.5 Mg/3 Ml NEB 08/19/20 15:24 3 ml ONETIME ONE Administration Methylprednisolone Sodium Succinate 125 mg 08/19/20 15:23 08/19/20 15:28 Solu-Medrol IM 08/19/20 15:24 125 mg ONETIME ONE Administration Departure - Departure Time of Disposition: 15:27 Disposition: Home, Self-Care 01 Clinical Impression: Asthma exacerbation Qualifiers: Asthma severity: mild Asthma persistence: unspecified Qualified Code(s): J45.901 - Unspecified asthma with (acute) exacerbation - Discharge Information Prescriptions: predniSONE [Prednisone] 20 mg PO DAILY 5 Days #5 tablet Instructions: Asthma, Adult, [id number] Referrals: Delmi Langley [employer] AIDE [Primary Care Provider] - Forms: ED Department Discharge Additional Instructions: The following information is given to patients seen in the emergency department who are being discharged to home. This information is to outline your options for follow-up care. We provide all patients seen in our emergency department with a follow-up referral. The need for follow-up, as well as the timing and circumstances, are variable depending upon the specifics of your emergency department visit. If you don't have a primary care physician on staff, we will provide you with a referral. We always advise you to contact your personal physician following an emergency department visit to inform them of the circumstance of the visit and for follow-up with them and/or the need for any referrals to a consulting specialist. The emergency department will also refer you to a specialist when appropriate. This referral assures that you have the opportunity for follow-up care with a specialist. All of these measure are taken in an effort to provide you with optimal care, which includes your follow-up. Under all circumstances we always encourage you to contact your private physician who remains a resource for coordinating your care. When calling for follow-up care, please make the office aware that this follow-up is from your recent emergency room visit. If for any reason you are refused follow-up, please contact the [facility] Emergency Department at and asked to speak to the emergency department charge nurse. [facility] Primary [facility] [address] [place] [id number] [place] [address] 1. Use inhalers as prescribed to you prior as directed and as discussed. Take medication as prescribed. 2. Follow-up with a primary care provider as discussed. Return to the ED as needed and as discussed. Sepsis Event Note (ED) - Focused Exam Vital Signs: Vital Signs Temp Pulse Resp BP Pulse Ox 08/19/20 15:55 97.5 F 88 18 113/84 98 08/19/20 15:07 96.2 F L 90 16 118/80 97
[2020-08-19] MEDS ORDERED: methylPREDNISolone Sodium Succinate 125 MG/2 ML SDV IM ONE (15:23)
[2020-08-19] MEDS ORDERED: Albuterol/Ipratropium 3.0-0.5 MG/3 ML Neb Soln NEB ONE (15:23)
== END 2020-08-19 15:55 | disposition home or self-care (01) ==
LOC: MW.ED 14:59
DX: J45.901 Unspecified asthma with (acute) exacerbation (principal); F41.9 Anxiety disorder, unspecified; F32.9 Major depressive disorder, single episode, unspecified; Z88.1 Allergy status to other antibiotic agents; Z88.2 Allergy status to sulfonamides; Z79.899 Other long term (current) drug therapy
CPT/HCPCS: 94640; 96372; 99284; J2930; 99282; J7620-GY

== ENCOUNTER 2020-11-26 05:51 | Emergency (ER) | payer OTHER, MEDICAID ==
--- NOTE | 2020-11-26 06:31 | EDM.PDOC ---
ED HPI GENERAL MEDICAL PROBLEM - General Chief Complaint: General Stated Complaint: RIGHT SHOULDER AND NECK PAIN Time Seen by Provider: 11/26/20 06:26 - History of Present Illness INITIAL COMMENTS - FREE TEXT/NARRATIVE: HISTORY AND PHYSICAL: History of present illness: This is a 24-year-old female with no significant past medical history presents ER today secondary to pain to her right neck radiating to her right arm and shou lder x2 to 3 days. Patient reports that she works for [employer] and has been working extra hours over the last several days secondary to the holidays. Patient reports 2 to 3 days ago felt that her neck was extremely stiff and has pain whenever she turns her head to the left or right up or down. Patient reports that she has been using acetaminophen and ibuprofen without any significant relief in her discomfort. She reports that she is been using hot and cold packs without any significant relief in her discomfort. Patient denies any recent fevers, shakes, chills, nausea, vomiting, diarrhea, dysuria, frequency, urgency. Patient denies any weakness to her upper or lower extremities. Patient reports no history of similar symptoms in the past. Review of systems: As per history of present illness and below otherwise all systems reviewed and negative. Past medical history: As per history of present illness and as reviewed below otherwise noncontributory. Surgical history: As per history of present illness and as reviewed below otherwise noncontributory. Social history: No reported history of drug or alcohol abuse. Family history: As per history of present illness and as reviewed below otherwise noncontributory. Physical exam: Constitutional: Patient is oriented to person, place, and time. Appears well- developed and well-nourished. No distress. HEENT: Moist mucous membranes Head: Normocephalic and atraumatic Eyes: Right eye exhibits no discharge. Left eye exhibits no discharge. No scleral icterus Neck: Normal range of motion. No tracheal deviation present. Cardiovascular: Normal rate and regular rhythm. Pulmonary: Effort normal, no respiratory distress. Abdominal: No distention Musculoskeletal: Normal range of motion Neurologic: Alert and oriented to person, place and time. Skin: [place], warm and dry. Psychiatric: Normal mood and affect. Behavior is normal. Judgment and thought content normal. Nursing note and vital signs have been reviewed Patient's ER physical exam is significant for tenderness to palpation to her right sternocleidomastoid muscle, her scapula, and her shoulder. Patient has reproducible pain with any rotation or flexion of her neck. Patient has no C- spine T-spine or L-spine tenderness to palpation. Patient has a normal neurological exam. Patient has normal sensation in her upper and lower extremities. Patient has normal motor function in her upper extremities. Patient has 5 out of 5 shoulder shrug, biceps, triceps, wrist and finger strength. This patient was seen and evaluated during the 2019 SARS-CoV-2 novel coronavirus pandemic period. Community viral transmission is ongoing at time of this encounter and the emergency department is operating under pandemic response procedures. Therapeutics: [] Assessment and plan: This is a 24-year-old female who presents to the ER today secondary to signs and symptoms that appear to be consistent with torticollis. Patient reports that she works with [employer] and has been working extra hours doing a lot of lifting over the last several days secondary to the recent holidays. Patient has attempted to medicate herself with acetaminophen and ibuprofen as well as hot and cold packs without any significant relief. Patient will be given Toradol, Flexeril, Ultram in the ED and will be given a prescription for the same to assist her for the next couple days. Definitive disposition and diagnosis as appropriate pending reevaluation and review of above. - Related Data Allergies Allergy/AdvReac Type Severity Reaction Status Date / Time clindamycin Allergy Difficulty Verified 11/26/20 06:14 Breathing sulfamethoxazole Allergy Difficulty Verified 11/26/20 06:14 [From Bactrim] Breathing trimethoprim [From Bactrim] Allergy Difficulty Verified 11/26/20 06:14 Breathing Home Meds: Home Meds Albuterol Sulfate [Albuterol Sulfate Hfa] 2 puff INH ASDIRECTED PRN 11/26/20 [History] Amphetamine/Dextroamphetamine [Adderall] mg PO DAILY 11/26/20 [History] Cyclobenzaprine [Flexeril] 10 mg PO TID PRN #20 tab 11/26/20 [Rx] Escitalopram Oxalate [Lexapro] mg PO DAILY 11/26/20 [History] Ibuprofen 600 mg PO Q6HR PRN #30 tablet 11/26/20 [Rx] LORazepam [Ativan] 1 mg PO ASDIRECTED PRN 11/26/20 [History] traMADol [Ultram] 50 mg PO Q6H PRN #12 tab 11/26/20 [Rx] Past Medical History - Past Health History Medical/Surgical History: Denies Medical/Surgical History HEENT 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: Allergic Rhinitis Respiratory 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: Asthma Musculoskeletal 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: Fracture, Other (See Below) Other Musculoskeletal History: right foot fx with repair x2 Psychiatric 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: ADHD, Anxiety, Depression - Infectious Disease History Infectious Disease 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: None - Past Surgical History HEENT Surgical 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: None Respiratory Surgical 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: None Musculoskeletal Surgical 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: None Social & Family History - Family History Family Medical History: No Pertinent Family History HEENT: Reports: None Cardiac: Reports: None Respiratory: Reports: None - Tobacco Use Tobacco Use Status *Q: Never Tobacco User - Caffeine Use Caffeine Use: Reports: None Caffeine Use Comment: Occassionally - Recreational Drug Use Recreational Drug Use: No ED ROS GENERAL - Review of Systems Review Of Systems: See Below ED EXAM, GENERAL - Physical Exam Exam: See Below Course - Vital Signs Last Recorded V/S: Last Vital Signs Temp 97.3 F 11/26/20 06:16 Pulse 105 H 11/26/20 06:16 Resp 18 11/26/20 06:16 BP 106/68 11/26/20 06:16 Pulse Ox 97 11/26/20 06:16 - Orders/Labs/Meds Meds: Medications Discontinued Medications Generic Name Dose Route Start Last Admin Trade Name Freq PRN Reason Stop Dose Admin Cyclobenzaprine HCl 10 mg 11/26/20 06:32 Flexeril PO 11/26/20 06:33 ONETIME ONE Ketorolac Tromethamine 30 mg 11/26/20 06:32 Toradol IM 11/26/20 06:33 ONETIME ONE Tramadol HCl 50 mg 11/26/20 06:32 Ultram PO 11/26/20 06:33 ONETIME ONE Departure - Departure Time of Disposition: 06:37 Disposition: Home, Self-Care 01 Condition: Good Clinical Impression: Torticollis, acute, Neck strain - Discharge Information Instructions: Acute Torticollis, Adult Referrals: Delmi Langley TOWER CLIMBER [Primary Care Provider] - Forms: ED Department Discharge Additional Instructions: You were seen and evaluated in the ER today secondary to pain to your neck. Your evaluation appears to be consistent with torticollis. You have been given a dose of Toradol intramuscularly, Ultram and Flexeril to assist you with pain. You will be given a prescription for Ultram to take every 6 hours as needed for pain. Ibuprofen to take every 6 hours as needed for pain and inflammation of the muscles. Flexeril to take every 8 hours as needed for muscle relaxation and spasms. The following information is given to patients seen in the emergency department who are being discharged to home. This information is to outline your options for follow-up care. We provide all patients seen in our emergency department with a follow-up referral. The need for follow-up, as well as the timing and circumstances, are variable depending upon the specifics of your emergency department visit. If you don't have a primary care physician on staff, we will provide you with a referral. We always advise you to contact your personal physician following an emergency department visit to inform them of the circumstance of the visit and for follow-up with them and/or the need for any referrals to a consulting specialist. The emergency department will also refer you to a specialist when appropriate. This referral assures that you have the opportunity for follow-up care with a specialist. All of these measure are taken in an effort to provide you with optimal care, which includes your follow-up. Under all circumstances we always encourage you to contact your private physician who remains a resource for coordinating your care. When calling for follow-up care, please make the office aware that this follow-up is from your recent emergency room visit. If for any reason you are refused follow-up, please contact the [facility] Emergency Department at and asked to speak to the emergency department charge nurse. [facility] - Primary Care [address] [place] [id number] [address] Sepsis Event Note (ED) - Evaluation Sepsis Screening Result: No Definite Risk - Focused Exam Vital Signs: Vital Signs Temp Pulse Resp BP Pulse Ox 11/26/20 06:16 97.3 F 105 H 18 106/68 97
[2020-11-26] MEDS ORDERED: Cyclobenzaprine 10 MG Tab PO ONE (06:32)
[2020-11-26] MEDS ORDERED: traMADol 50 MG Tab PO ONE (06:32)
[2020-11-26] MEDS ORDERED: Ketorolac 30 MG/ML SDV IM ONE (06:32)
== END 2020-11-26 07:09 | disposition home or self-care (01) ==
LOC: MW.ED 05:51
DX: S16.1XXA Strain of muscle, fascia and tendon at neck level, initial encounter (principal); M43.6 Torticollis; Z88.1 Allergy status to other antibiotic agents; Z88.2 Allergy status to sulfonamides; Z79.899 Other long term (current) drug therapy; J45.909 Unspecified asthma, uncomplicated; F41.9 Anxiety disorder, unspecified; F32.9 Major depressive disorder, single episode, unspecified; F90.9 Attention-deficit hyperactivity disorder, unspecified type; X58.XXXA Exposure to other specified factors, initial encounter
CPT/HCPCS: 96372; 99283; A9270; J1885; 99282

== ENCOUNTER 2021-05-13 12:37 | Emergency (ER) | payer SELFPAY ==
[2021-05-13] MEDS ORDERED: Sodium Chloride 0.9% 1,000 ML IV ONE (12:52)
--- NOTE | 2021-05-13 13:31 | EDM.PDOC ---
ED HPI GENERAL MEDICAL PROBLEM - General Chief Complaint: General Stated Complaint: LIGHTHEADED/PUKING/DIZZINESS Time Seen by Provider: 05/13/21 13:11 Source of Information: Reports: Patient History Limitations: Reports: No Limitations - History of Present Illness INITIAL COMMENTS - FREE TEXT/NARRATIVE: HISTORY AND PHYSICAL: History of present illness: Patient is a 25-year-old female who presents to the emergency room with complaints of dizziness and near syncope. She states the previous 2 to 3 days she has had some loose stools. Today while at work she felt dizzy and like she could "pass out". She did have 1 episode of vomiting prior to arrival. 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 Patient denies any fever, chills, headache, change in vision, syncope or near syncope. Denies any chest pain, back pain, shortness of breath or cough. Denies any abdominal pain, constipation or dysuria. No concern for . Has not noted any blood in urine or stool. Patient had been eating and drinking appropriately. Review of systems: As per history of present illness and below otherwise all systems reviewed and negative. Past medical history: As per history of present illness and as reviewed below otherwise noncontributory. Surgical history: As per history of present illness and as reviewed below otherwise noncontributory. Social history: See social history for further information Family history: As per history of present illness and as reviewed below otherwise noncontributory. Physical exam: General: Well developed and well nourished 25-year-old female. Alert and orientated x 3. Nontoxic in appearance and in no acute distress. Vital signs are stable and have been reviewed by me. Nursing notes were reviewed. HEENT: Atraumatic, normocephalic, pupils equal and reactive bilaterally, negative for conjunctival pallor or scleral icterus, mucous membranes moist, trachea midline. No drooling or trismus noted. No meningeal signs. No hot potato voice noted. Lungs: Clear to auscultation bilaterally. No wheezes, rales, or rhonchi. Chest nontender. Normal work of breathing, no accessory muscles used. Heart: S1S2, regular rate and rhythm without overt murmur, gallops, or rubs. No JVD. No peripheral edema Abdomen: Soft, nondistended, nontender. Normoactive bowel sounds. Negative for masses or costovertebral tenderness. Skin: Intact, warm, dry. No lesions or rashes noted. Hematologic: No petechiae or purpra. Mucosa appropriate color and normal nail bed color and refill. Extremities: Atraumatic, moves all extremities per self without difficulty or deficits, negative for cords or calf pain. Neurovascular unremarkable. Neuro: Awake, alert, oriented. Cranial nerves II through XII unremarkable. Cerebellum unremarkable. Motor and sensory unremarkable throughout. Exam nonfocal. Psychiatric: Mood and affect are appropriate. Normal thought process. Answering questions appropriately. Notes: *This patient was seen and evaluated during the 2019 SARS-CoV-2 novel coronavirus pandemic period. Community viral transmission is ongoing at time of this encounter and the emergency department is operating under pandemic response procedures. Patient is a 25-year-old female who presents to the emergency room with complaints of dizziness. She states a few days prior she did have loose stools which is now resolved. She also had nausea with one episode of vomiting prior to arrival, this is resolved as well. She is concerned she may have been in the heat too long and would like to be evaluated. Patient's physical exam is unremarkable. Her vital signs are stable. We will do basic lab work and give her IV fluids. Lab work is unremarkable. Patient feels improved after the IV fluids. I have talked with the patient about today's findings, in addition to providing specific details for plan of care. Reassessment at the time of disposition demonstrates that the patient is in no acute distress. The patient is stable for discharge, counseling was provided and we discussed in great detail signs and symptoms that would prompt them to return to the Emergency Department. Medication, follow up and supportive care measures were reviewed and discussed. Voices understanding and is agreeable to plan of care. Denies any further questions or concerns at this time. Diagnostics: CBC, CMP, UA, urine Therapeutics: IV fluid Prescription: None Impression: Viral illness Plan: 1. You were evaluated today on an emergent basis. Your lab work is within normal limits. Please rest and eat small frequent meals throughout the day. 2. You can alternate Tylenol and ibuprofen as needed for pain and fever management. 3. We encourage you to follow up with your primary care provider and/or recommended specialist in the next few days for re-evaluation and further care/management. 4. If your symptoms should worsen, new symptoms develop or any of the signs and symptoms we discussed should arise please return to the emergency room or call 911 (if needed). Definitive disposition and diagnosis as appropriate pending reevaluation and review of above. - Related Data Allergies Allergy/AdvReac Type Severity Reaction Status Date / Time clindamycin Allergy Difficulty Verified 05/13/21 13:07 Breathing sulfamethoxazole Allergy Difficulty Verified 05/13/21 13:07 [From Bactrim] Breathing trimethoprim [From Bactrim] Allergy Difficulty Verified 05/13/21 13:07 Breathing Home Meds: Home Meds Albuterol Sulfate [Albuterol Sulfate Hfa] 2 puff INH ASDIRECTED PRN 11/26/20 [History] Amphetamine/Dextroamphetamine [Adderall] 20 mg PO DAILY 11/26/20 [History] Escitalopram Oxalate [Lexapro] mg PO DAILY 11/26/20 [History] Ibuprofen 600 mg PO Q6HR PRN #30 tablet 11/26/20 [Rx] LORazepam [Ativan] 1 mg PO ASDIRECTED PRN 11/26/20 [History] Past Medical History - Past Health History Medical/Surgical History: Denies Medical/Surgical History HEENT 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: Allergic Rhinitis Respiratory 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: Asthma Musculoskeletal 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: Fracture, Other (See Below) Other Musculoskeletal History: right foot fx with repair x2 Psychiatric 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: ADHD, Anxiety, Depression - Infectious Disease History Infectious Disease 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: Chicken Pox - Past Surgical History HEENT Surgical 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: None Respiratory Surgical 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: None Musculoskeletal Surgical 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: None Social & Family History - Family History Family Medical History: No Pertinent Family History HEENT: Reports: None Cardiac: Reports: None Respiratory: Reports: None - Tobacco Use Tobacco Use Status *Q: Never Tobacco User - Caffeine Use Caffeine Use: Reports: Energy Drinks, Soda Caffeine Use Comment: Occassionally - Recreational Drug Use Recreational Drug Use: No ED ROS GENERAL - Review of Systems Review Of Systems: Comprehensive ROS is negative, except as noted in HPI. ED EXAM, GENERAL - Physical Exam Exam: See Below (See dictation) Course - Vital Signs Last Recorded V/S: Last Vital Signs Temp 98.0 F 05/13/21 14:22 Pulse 80 05/13/21 14:22 Resp 18 05/13/21 14:22 BP 112/74 05/13/21 14:22 Pulse Ox 98 05/13/21 14:22 Orthostatic Blood Pressure [ 122/74 Standing] Orthostatic Blood Pressure [ 115/77 Sitting] Orthostatic Blood Pressure [ 112/74 Supine] - Orders/Labs/Meds Orders: Active Orders 24 hr Category Date Time Status Orthostatic Vital Signs [RC] ASDIRECTED Care 05/13/21 12:52 Active Labs: Laboratory Tests 05/13/21 05/13/21 05/13/21 Range/Units 13:10 13:10 14:26 WBC 8.87 (4.0-11.0) K/uL RBC 4.59 (4.30-5.90) M/uL Hgb 14.6 (12.0-16.0) g/dL Hct 43.1 (36.0-46.0) % MCV 93.9 (80.0-98.0) fL MCH 31.8 (27.0-32.0) pg MCHC 33.9 (31.0-37.0) g/dL RDW Std Deviation 40.7 (28.0-62.0) fl RDW Coeff of Dillon 12 (11.0-15.0) % Plt Count 289 (150-400) K/uL MPV 10.20 (7.40-12.00) fL Neut % (Auto) 65.7 (48.0-80.0) % Lymph % (Auto) 18.9 (16.0-40.0) % [place] % (Auto) 9.9 (0.0-15.0) % Eos % (Auto) 5.0 (0.0-7.0) % Baso % (Auto) 0.5 (0.0-1.5) % Neut # (Auto) 5.8 H (1.4-5.7) K/uL Lymph # (Auto) 1.7 (0.6-2.4) K/uL [place] # (Auto) 0.9 H (0.0-0.8) K/uL Eos # (Auto) 0.4 (0.0-0.7) K/uL Baso # (Auto) 0.0 (0.0-0.1) K/uL Nucleated RBC % 0.0 /100WBC Nucleated RBCs # 0 K/uL Sodium 139 (136-145) mmol/L Potassium 4.5 (3.5-5.1) mmol/L Chloride 103 (98-107) mmol/L Carbon Dioxide 29.8 (21.0-32.0) mmol/L BUN 10 (7.0-18.0) mg/dL Creatinine 0.8 (0.6-1.0) mg/dL Est Cr Clr Drug Dosing 84.28 mL/min Estimated GFR (MDRD) > 60.0 ml/min Glucose 105 (74-106) mg/dL Calcium 8.9 (8.5-10.1) mg/dL Total Bilirubin 0.2 (0.2-1.0) mg/dL AST 16 (15-37) IU/L ALT 20 (14-63) IU/L Alkaline Phosphatase 78 (46-116) U/L Total Protein 7.9 (6.4-8.2) g/dL Albumin 4.2 (3.4-5.0) g/dL Globulin 3.7 (2.6-4.0) g/dL Albumin/Globulin Ratio 1.1 (0.9-1.6) Urine Color YELLOW Urine Appearance CLEAR Urine pH 7.0 (5.0-8.0) Ur Specific [place] 1.010 (1.001-1.035) Urine Protein NEGATIVE (NEGATIVE) mg/dL Urine Glucose (UA) NEGATIVE (NEGATIVE) mg/dL Urine Ketones NEGATIVE (NEGATIVE) mg/dL Urine Occult Blood NEGATIVE (NEGATIVE) Urine Nitrite NEGATIVE (NEGATIVE) Urine Bilirubin NEGATIVE (NEGATIVE) Urine Urobilinogen 0.2 (<2.0) EU/dL Ur Leukocyte Esterase NEGATIVE (NEGATIVE) Urine HCG, Qual (NEGATIVE) 05/13/21 Range/Units 14:26 WBC (4.0-11.0) K/uL RBC (4.30-5.90) M/uL Hgb (12.0-16.0) g/dL Hct (36.0-46.0) % MCV (80.0-98.0) fL MCH (27.0-32.0) pg MCHC (31.0-37.0) g/dL RDW Std Deviation (28.0-62.0) fl RDW Coeff of Dillon (11.0-15.0) % Plt Count (150-400) K/uL MPV (7.40-12.00) fL Neut % (Auto) (48.0-80.0) % Lymph % (Auto) (16.0-40.0) % [place] % (Auto) (0.0-15.0) % Eos % (Auto) (0.0-7.0) % Baso % (Auto) (0.0-1.5) % Neut # (Auto) (1.4-5.7) K/uL Lymph # (Auto) (0.6-2.4) K/uL [place] # (Auto) (0.0-0.8) K/uL Eos # (Auto) (0.0-0.7) K/uL Baso # (Auto) (0.0-0.1) K/uL Nucleated RBC % /100WBC Nucleated RBCs # K/uL Sodium (136-145) mmol/L Potassium (3.5-5.1) mmol/L Chloride (98-107) mmol/L Carbon Dioxide (21.0-32.0) mmol/L BUN (7.0-18.0) mg/dL Creatinine (0.6-1.0) mg/dL Est Cr Clr Drug Dosing mL/min Estimated GFR (MDRD) ml/min Glucose (74-106) mg/dL Calcium (8.5-10.1) mg/dL Total Bilirubin (0.2-1.0) mg/dL AST (15-37) IU/L ALT (14-63) IU/L Alkaline Phosphatase (46-116) U/L Total Protein (6.4-8.2) g/dL Albumin (3.4-5.0) g/dL Globulin (2.6-4.0) g/dL Albumin/Globulin Ratio (0.9-1.6) Urine Color Urine Appearance Urine pH (5.0-8.0) Ur Specific [place] (1.001-1.035) Urine Protein (NEGATIVE) mg/dL Urine Glucose (UA) (NEGATIVE) mg/dL Urine Ketones (NEGATIVE) mg/dL Urine Occult Blood (NEGATIVE) Urine Nitrite (NEGATIVE) Urine Bilirubin (NEGATIVE) Urine Urobilinogen (<2.0) EU/dL Ur Leukocyte Esterase (NEGATIVE) Urine HCG, Qual NEGATIVE (NEGATIVE) Meds: Medications Discontinued Medications Generic Name Dose Route Start Last Admin Trade Name Freq PRN Reason Stop Dose Admin Sodium Chloride 1,000 mls @ 999 mls/hr 05/13/21 12:52 05/13/21 13:29 Normal Saline IV 05/13/21 13:52 999 mls/hr STAT ONE Administration Departure - Departure Time of Disposition: 15:14 Disposition: Home, Self-Care 01 Clinical Impression: Viral illness - Discharge Information Instructions: Viral Illness, Adult Referrals: Machelle Murdock NP [Primary Care Provider] - Forms: ED Department Discharge Additional Instructions: The following information is given to patients seen in the emergency department who are being discharged to home. This information is to outline your options for follow-up care. We provide all patients seen in our emergency department with a follow-up referral. The need for follow-up, as well as the timing and circumstances, are variable depending upon the specifics of your emergency department visit. If you don't have a primary care physician on staff, we will provide you with a referral. We always advise you to contact your personal physician following an emergency department visit to inform them of the circumstance of the visit and for follow-up with them and/or the need for any referrals to a consulting specialist. The emergency department will also refer you to a specialist when appropriate. This referral assures that you have the opportunity for follow-up care with a specialist. All of these measure are taken in an effort to provide you with optimal care, which includes your follow-up. Under all circumstances we always encourage you to contact your private physician who remains a resource for coordinating your care. When calling for follow-up care, please make the office aware that this follow-up is from your recent emergency room visit. If for any reason you are refused follow-up, please contact the [facility] Emergency Department at and asked to speak to the emergency department charge nurse. [facility] [address] [place] [id number] [facility] [address] [place] [id number] Thank you for choosing the [facility] emergency department in [place] for your medical needs today. It was a pleasure caring for you. Today you were seen in the emergency department for viral illness. 1. You were evaluated today on an emergent basis. Your lab work is within normal limits. Please rest and eat small frequent meals throughout the day. 2. You can alternate Tylenol and ibuprofen as needed for pain and fever m anagement. 3. We encourage you to follow up with your primary care provider and/or recommended specialist in the next few days for re-evaluation and further care/management. 4. If your symptoms should worsen, new symptoms develop or any of the signs and symptoms we discussed should arise please return to the emergency room or call 911 (if needed). Sepsis Event Note (ED) - Evaluation Sepsis Screening Result: No Definite Risk - Focused Exam Vital Signs: Vital Signs Temp Pulse Resp BP Pulse Ox 05/13/21 14:22 98.0 F 80 18 112/74 98 05/13/21 13:08 97.1 F 76 18 120/71 99 - My Orders Last 24 Hours: My Active Orders 05/13/21 12:52 Orthostatic Vital Signs [RC] ASDIRECTED - Assessment/Plan Last 24 Hours: My Active Orders 05/13/21 12:52 Orthostatic Vital Signs [RC] ASDIRECTED
[2021-05-13 13:45] LABS: BLOOD UREA NITROGEN,BUN 10 mg/dL (7.0-18.0); CARBON DIOXIDE,CO2 29.8 mmol/L (21.0-32.0); CHLORIDE,CL 103 mmol/L (98-107); GLUCOSE RANDOM 105 mg/dL (74-106); POTASSIUM,K 4.5 mmol/L (3.5-5.1); SODIUM,NA 139 mmol/L (136-145)
== END 2021-05-13 15:27 | disposition home or self-care (01) ==
LOC: MW.ED 12:37
DX: B34.9 Viral infection, unspecified (principal); Z88.1 Allergy status to other antibiotic agents
CPT/HCPCS: 36415; 80053; 81003; 81025; 85025; 99284; J7030; 99283

== ENCOUNTER 2021-07-14 05:02 | Emergency (ER) | payer BC, MEDICAID ==
[2021-07-14] MEDS ORDERED: traMADol 50 MG Tab PO ONE (05:26)
--- NOTE | 2021-07-14 05:57 | EDM.PDOC ---
ED HPI GENERAL MEDICAL PROBLEM - General Chief Complaint: Lower Extremity Injury/Pain Stated Complaint: POSSIBLE TEAR TO RIGHT ACL Time Seen by Provider: 07/14/21 05:45 - History of Present Illness INITIAL COMMENTS - FREE TEXT/NARRATIVE: HISTORY AND PHYSICAL: History of present illness: Is a 25-year-old female who presents ER today secondary to severe pain to her right knee that she sustained while playing football with 3 young boys. Patient reports that she fell and hyper extended her knee when she landed on her foot. Patient had no direct trauma to the knee itself however she overextended it when she landed. Patient reports she been having severe pain and difficulty with ambulation and weightbearing. Patient denies any other injury. Patient has any fall after the episode and no head trauma. Patient reports that she took an Aleve prior to coming to the ED. Patient denies any history of hypertension, diabetes, liver, lung, kidney problems. Patient has any tobacco alcohol or drugs. Review of systems: As per history of present illness and below otherwise all systems reviewed and negative. Past medical history: As per history of present illness and as reviewed below otherwise noncontributory. Surgical history: As per history of present illness and as reviewed below otherwise noncontributory. Social history: No reported history of drug abuse. Family history: As per history of present illness and as reviewed below otherwise noncontributory. Physical exam: This patient was seen and evaluated during the 2019 SARS-CoV-2 novel coronavirus pandemic period. Community viral transmission is ongoing at time of this encounter and the emergency department is operating under pandemic response procedures. Constitutional: Patient is oriented to person, place, and time. Appears well- developed and well-nourished. No distress. HEENT: Moist mucous membranes Head: Normocephalic and atraumatic Eyes: Right eye exhibits no discharge. Left eye exhibits no discharge. No scleral icterus Neck: Normal range of motion. No tracheal deviation present. Cardiovascular: Normal rate and regular rhythm. Pulmonary: Effort normal, no respiratory distress. Abdominal: No distention Musculoskeletal: Normal range of motion Neurologic: Alert and oriented to person, place and time. Skin: [place], warm and dry. Psychiatric: Normal mood and affect. Behavior is normal. Judgment and thought content normal. Nursing note and vital signs have been reviewed Patient's ER physical exam is significant for tenderness to palpation to her right knee. Patient does have some slight bruising to the medial aspect of her right knee. Patient has no point bony tenderness over the patella. Patient's quadriceps and patellar tendons are intact. Patient has no significant knee effusion. Patella is nonballotable. Remainder of the exam is difficult to assess secondary to pain. Diagnostics: Right knee x-ray: No acute fracture or dislocation identified. Therapeutics: DME note: Right knee immobilizer will be placed secondary to ligamentous injury to the right knee. Knee immobilizer will need to be in place for 1 week. Knee immobilizer is necessary secondary to ligamentous injury and assisting with healing of ligamentous injury with immobilization. Assessment and plan: 25-year-old female who presents ER today secondary to injury to her right knee from hyperextension. Patient will have an x-ray performed and will be given a knee immobilizer to assist with likely ligamentous injury. Patient will be given a dose of Ultram here in the ED. patient will be discharged home with a prescription for ibuprofen and Ultram to assist with her pain and instructions to follow-up with orthopedic surgery for further evaluation and likely outpatient MRI if the pain and discomfort should persist. Patient will be weightbearing as tolerated Reassessment at the time of disposition demonstrates that the patient is in no acute distress. The patient has remained stable throughout the entire ED visit and is without objective evidence for acute process requiring urgent intervention or hospitalization. The patient is stable for discharge, counseling is provided as documented above, discussed symptomatic treatment and specific conditions for return. I have spoken with the patient/caregiver and discussed todays findings, in addition to providing specific details for the plan of care. Questions are an swered and there is agreement with the plan. Definitive disposition and diagnosis as appropriate pending reevaluation and review of above. - Related Data Allergies Allergy/AdvReac Type Severity Reaction Status Date / Time clindamycin Allergy Difficulty Verified 07/14/21 05:20 Breathing sulfamethoxazole Allergy Difficulty Verified 07/14/21 05:20 [From Bactrim] Breathing trimethoprim [From Bactrim] Allergy Difficulty Verified 07/14/21 05:20 Breathing Home Meds: Home Meds Albuterol Sulfate [Albuterol Sulfate Hfa] 2 puff INH ASDIRECTED PRN 11/26/20 [History] Amphetamine/Dextroamphetamine [Adderall] 20 mg PO DAILY 11/26/20 [History] Escitalopram Oxalate [Lexapro] 20 mg PO DAILY 11/26/20 [History] LORazepam [Ativan] 1 mg PO ASDIRECTED PRN 11/26/20 [History] Gabapentin [Neurontin] 600 mg PO QPM 07/14/21 [History] Ibuprofen 600 mg PO Q6HR PRN #30 tablet 07/14/21 [Rx] Spironolactone [Aldactone] 25 mg PO BID 07/14/21 [History] busPIRone [Buspar] 10 mg PO BID 07/14/21 [History] traMADol [Ultram] 50 mg PO Q6H PRN #12 tab 07/14/21 [Rx] Past Medical History - Past Health History Medical/Surgical History: Denies Medical/Surgical History HEENT 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: Allergic Rhinitis Respiratory 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: Asthma Musculoskeletal 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: Fracture, Other (See Below) Other Musculoskeletal History: right foot fx with repair x2 Psychiatric 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: ADHD, Anxiety, Depression - Infectious Disease History Infectious Disease 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: Chicken Pox - Past Surgical History HEENT Surgical 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: None Respiratory Surgical 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: None Musculoskeletal Surgical 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: None Social & Family History - Family History Family Medical History: No Pertinent Family History HEENT: Reports: None Cardiac: Reports: None Respiratory: Reports: None - Caffeine Use Caffeine Use: Reports: Energy Drinks, Soda Caffeine Use Comment: Occassionally Review of Systems - Review of Systems Review Of Systems: See Below ED EXAM, GENERAL - Physical Exam Exam: See Below Course - Vital Signs Last Recorded V/S: Last Vital Signs Temp 96.9 F 07/14/21 05:18 Pulse 77 07/14/21 05:18 Resp 15 07/14/21 05:18 BP 126/79 07/14/21 05:18 Pulse Ox 98 07/14/21 05:18 - Orders/Labs/Meds Orders: Active Orders 24 hr Category Date Time Status Knee 3V Rt [CR] Stat Exams 07/14/21 05:26 Taken DME for Discharge [COMM] Stat Oth 07/14/21 05:27 Ordered Meds: Medications Discontinued Medications Generic Name Dose Route Start Last Admin Trade Name Freq PRN Reason Stop Dose Admin Tramadol HCl 50 mg 07/14/21 05:26 07/14/21 05:32 Tramadol 50 Mg Tab PO 07/14/21 05:27 50 mg ONETIME ONE Administration Departure - Departure Time of Disposition: 05:55 Disposition: Home, Self-Care 01 Condition: Good Clinical Impression: Derangement of knee Injury of ligament of right knee Qualifiers: Encounter type: initial encounter Qualified Code(s): S89.91XA - Unspecified injury of right lower leg, initial encounter - Discharge Information Prescriptions: Ibuprofen 600 mg PO Q6HR PRN #30 tablet PRN Reason: Pain traMADol [Ultram] 50 mg PO Q6H PRN #12 tab PRN Reason: Pain Instructions: Combined Knee Ligament Sprain, Knee Sprain, Adult, [id number], How to Use a Knee Immobilizer, [id number] Referrals: Delmi Langley LENS FINISHER [Primary Care Provider] - Forms: ED Department Discharge Additional Instructions: You were seen and evaluated in ER today secondary to a likely ligamentous injury to her right knee. The x-ray that you receive did not reveal any fractures however x-rays will not evaluate any of the ligaments within your knee. You will be placed in knee immobilizer and instructed to follow-up with orthopedic surgery so they can reevaluate you and likely order an MRI if your pain should persist. You were given a prescription for Ultram to help with your pain as well as ibuprofen. You may weight-bear as tolerated. [facility] [address], [address] [place] [address] The following information is given to patients seen in the emergency department who are being discharged to home. This information is to outline your options for follow-up care. We provide all patients seen in our emergency department with a follow-up referral. The need for follow-up, as well as the timing and circumstances, are variable depending upon the specifics of your emergency department visit. If you don't have a primary care physician on staff, we will provide you with a referral. We always advise you to contact your personal physician following an emergency department visit to inform them of the circumstance of the visit and for follow-up with them and/or the need for any referrals to a consulting specialist. The emergency department will also refer you to a specialist when appropriate. This referral assures that you have the opportunity for follow-up care with a specialist. All of these measure are taken in an effort to provide you with optimal care, which includes your follow-up. Under all circumstances we always encourage you to contact your private physician who remains a resource for coordinating your care. When calling for follow-up care, please make the office aware that this follow-up is from your recent emergency room visit. If for any reason you are refused follow-up, please contact the [facility] Emergency Department at and asked to speak to the emergency department charge nurse. [facility] [address] [place] [id number] [facility] [address] [place] [id number] Sepsis Event Note (ED) - Evaluation Sepsis Screening Result: No Definite Risk - Focused Exam Vital Signs: Vital Signs Temp Pulse Resp BP Pulse Ox 07/14/21 05:18 96.9 F 77 15 126/79 98 - My Orders Last 24 Hours: My Active Orders 07/14/21 05:26 Knee 3V Rt [CR] Stat 07/14/21 05:27 DME for Discharge [COMM] Stat - Assessment/Plan Last 24 Hours: My Active Orders 07/14/21 05:26 Knee 3V Rt [CR] Stat 07/14/21 05:27 DME for Discharge [COMM] Stat
--- NOTE | 2021-07-14 06:06 | CR ---
Indication: Knee pain Comparison: None available. Technique: AP and lateral views right knee were obtained Findings: There is no displaced fracture or dislocation. The joint spaces are grossly preserved. There is mild suprapatellar joint effusion. Impression: Demonstration of a trace suprapatellar joint effusion without evidence of displaced fracture. Dictated by Franklyn Herzog MD @ 07/14/2021 6:04:[address] Franklyn Herzog @ Jul 14 2021 6:04AM
== END 2021-07-14 06:31 | disposition home or self-care (01) ==
LOC: MW.ED 05:02
DX: S89.91XA Unspecified injury of right lower leg, initial encounter (principal); M23.91 Unspecified internal derangement of right knee; Z79.899 Other long term (current) drug therapy; Z88.1 Allergy status to other antibiotic agents; Z88.2 Allergy status to sulfonamides; W18.39XA Other fall on same level, initial encounter; Y93.61 Activity, american tackle football
CPT/HCPCS: 73562; 99283; A9270

== ENCOUNTER 2021-09-29 08:22 | Emergency (ER) | payer BC ==
[2021-09-29] MEDS ORDERED: HYDROmorphone 1 MG/ML Syringe IM ONE (08:46)
--- NOTE | 2021-09-29 08:51 | EDM.PDOC ---
ED HPI GENERAL MEDICAL PROBLEM - General Chief Complaint: Lower Extremity Injury/Pain Stated Complaint: ACL SURGERY PAIN Time Seen by Provider: 09/29/21 08:25 Source of Information: Reports: Patient History Limitations: Reports: No Limitations - History of Present Illness INITIAL COMMENTS - FREE TEXT/NARRATIVE: 25-year-old female presents with postsurgical pain. Patient had an ACL repair on her right knee 2 days ago in [place]. She was given a prescription for pain medication, Percocet 10 mg. She has been trying this with minimal relief. She notes pain and swelling of the right knee. Denies fevers or other symptoms. She does have a follow-up appointment on the of this month. right knee Pain Score (Numeric/FACES): 10 - Related Data Allergies Allergy/AdvReac Type Severity Reaction Status Date / Time clindamycin Allergy Difficulty Verified 09/29/21 08:38 Breathing sulfamethoxazole Allergy Difficulty Verified 09/29/21 08:38 [From Bactrim] Breathing trimethoprim [From Bactrim] Allergy Difficulty Verified 09/29/21 08:38 Breathing Home Meds: Home Meds Albuterol Sulfate [Albuterol Sulfate Hfa] 2 puff INH ASDIRECTED PRN 11/26/20 [History] Amphetamine/Dextroamphetamine [Adderall] 20 mg PO DAILY 11/26/20 [History] Escitalopram Oxalate [Lexapro] 20 mg PO DAILY 11/26/20 [History] LORazepam [Ativan] 1 mg PO ASDIRECTED PRN 11/26/20 [History] Gabapentin [Neurontin] 600 mg PO QPM 07/14/21 [History] Ibuprofen 600 mg PO Q6HR PRN #30 tablet 07/14/21 [Rx] Spironolactone [Aldactone] 25 mg PO BID 07/14/21 [History] busPIRone [Buspar] 10 mg PO BID 07/14/21 [History] traMADol [Ultram] 50 mg PO Q6H PRN #12 tab 07/14/21 [Rx] Aspirin 325 mg PO BID 09/29/21 [History] Hydrocodone/Acetaminophen [HYDROcodone-Acetaminophen 10-325 MG] 1 tab PO Q4HR 09/29/21 [History] Ondansetron [Zofran ODT] 4 mg PO Q8HR 09/29/21 [History] Pregabalin [Lyrica] 50 mg PO BID 09/29/21 [History] Past Medical History - Past Health History Medical/Surgical History: Denies Medical/Surgical History HEENT 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: Allergic Rhinitis Cardiovascular 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: None Respiratory 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: Asthma Gastrointestinal 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: None Genitourinary 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: None 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: 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 Musculoskeletal 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: Fracture, Other (See Below) Other Musculoskeletal History: right foot fx with repair x2 Neurological 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: None Psychiatric 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: ADHD, Anxiety, Depression Endocrine/Metabolic 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: None Hematologic 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: None Immunologic 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: None Oncologic (Cancer) 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: None Dermatologic 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: None - Infectious Disease History Infectious Disease 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: Chicken Pox - Past Surgical History Head Surgeries/Procedures: Reports: None HEENT Surgical 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: None Cardiovascular Surgical 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: None Respiratory Surgical 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: None GI Surgical 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: None Female Surgical 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: None Endocrine Surgical 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: None Neurological Surgical 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: None Musculoskeletal Surgical 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: Other (See Below) Oncologic Surgical 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: None Dermatological Surgical 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: None Social & Family History - Family History Family Medical History: No Pertinent Family History HEENT: Reports: None Cardiac: Reports: None Respiratory: Reports: None - Tobacco Use Tobacco Use Status *Q: Never Tobacco User Second Hand Smoke Exposure: No - Caffeine Use Caffeine Use: Reports: None Caffeine Use Comment: Occassionally - Recreational Drug Use Recreational Drug Use: No Review of Systems - Review of Systems Review Of Systems: Comprehensive ROS is negative, except as noted in HPI. ED EXAM, GENERAL - Physical Exam Exam: See Below Exam Limited By: No Limitations General Appearance: Alert, WD/WN, No Apparent Distress Ears: Hearing Grossly Normal Throat/Mouth: Normal Voice, No Airway Compromise Head: Atraumatic, Normocephalic Respiratory/Chest: No Respiratory Distress, Lungs Clear, Normal Breath Sounds, No Accessory Muscle Use Cardiovascular: Normal Peripheral Pulses, Regular Rate, Rhythm Extremities: Other (R lower extremity initially in BUCKY bandage and knee immobilizer; after removing the equipment, the knee does show large effusion with no redness, surgical incision sites are well appearing, low suspision septic joint) Neurological: Alert, Normal Cognition Psychiatric: Normal Affect, Normal Mood Skin Exam: Warm, Dry, Intact, Normal Color Course - Vital Signs Last Recorded V/S: Last Vital Signs Temp 97.9 F 09/29/21 08:41 Pulse 68 09/29/21 09:08 Resp 18 09/29/21 08:41 BP 109/73 09/29/21 09:08 Pulse Ox 100 09/29/21 09:08 - Orders/Labs/Meds Orders: Active Orders 24 hr Category Date Time Status RT Aerosol Therapy [RC] ASDIRECTED Care 09/29/21 08:57 Active Meds: Medications Discontinued Medications Generic Name Dose Route Start Last Admin Trade Name Freq PRN Reason Stop Dose Admin Albuterol/Ipratropium 3 ml 09/29/21 08:57 09/29/21 09:08 Albuterol/Ipratropium 3.0-0.5 Mg/3 Ml Neb Soln NEB 09/29/21 08:58 3 ml ONETIME ONE Administration Hydromorphone HCl 1 mg 09/29/21 08:46 09/29/21 09:08 Hydromorphone 1 Mg/Ml Syringe IM 09/29/21 08:47 1 mg ONETIME ONE Administration - Re-Assessments/Exams Free Text/Narrative Re-Assessment/Exam: 09/29/21 08:53 Patient's exam is consistent with a knee effusion secondary to recent surgical procedure. Low suspicion for septic joint. Will treat pain symptomatically. 09/29/21 09:53 Patient's pain is substantially improved. I recommend that she follow-up with her surgeon. She states that she will call this afternoon. Informed patient that definitive follow-up would best be done with the surgeon, however, we always happy to see her in the ER for any concerns and even if it is just for pain treatment. I recommend that she get on her oxycodone whenever she gets home to prevent the pain from rebounding. Departure - Departure Time of Disposition: 09:53 Disposition: Home, Self-Care 01 Condition: Good Clinical Impression: Post-operative pain - Discharge Information Instructions: Anterior Cruciate Ligament Reconstruction, Care After With Ph II Rehab-SportsMed Referrals: PCP,None [Primary Care Provider] - Forms: ED Department Discharge Additional Instructions: You were seen in the emergency department for postoperative pain related to your recent knee surgery. Based on my exam and your symptoms I have a low suspicion for infection of the joint, however, you do have a large effusion. You should definitely follow-up with your surgeon to see if there is anything they want to do for this including sometimes draining the fluid. Unfortunately we are a bit limited in the ER with low we can do to definitively fix this, however, we are always happy to see you and help with any acute pain issues that you might have following this procedure. The following information is given to patients seen in the emergency department who are being discharged to home. This information is to outline your options for follow-up care. We provide all patients seen in our emergency department with a follow-up referral. The need for follow-up, as well as the timing and circumstances, are variable depending upon the specifics of your emergency department visit. If you don't have a primary care physician on staff, we will provide you with a referral. We always advise you to contact your personal physician following an emergency department visit to inform them of the circumstance of the visit and for follow-up with them and/or the need for any referrals to a consulting specialist. The emergency department will also refer you to a specialist when appropriate. This referral assures that you have the opportunity for follow-up care with a specialist. All of these measure are taken in an effort to provide you with optimal care, which includes your follow-up. Under all circumstances we always encourage you to contact your private physician who remains a resource for coordinating your care. When calling for follow-up care, please make the office aware that this follow-up is from your recent emergency room visit. If for any reason you are refused follow-up, please contact the [facility] Emergency Department at and asked to speak to the emergency department charge nurse. Please follow up with your primary care physician. If you do not have a primary care physician, see below: [facility] [address] [place] [id number] [facility] [address] [place] [address] [facility] [address] [place] [address] Sepsis Event Note (ED) - Evaluation Sepsis Screening Result: No Definite Risk - Focused Exam Vital Signs: Vital Signs Temp Pulse Resp BP Pulse Ox 09/29/21 09:08 68 109/73 100 09/29/21 08:41 97.9 F 79 18 130/82 100 - My Orders Last 24 Hours: My Active Orders 09/29/21 08:57 RT Aerosol Therapy [RC] ASDIRECTED - Assessment/Plan Last 24 Hours: My Active Orders 09/29/21 08:57 RT Aerosol Therapy [RC] ASDIRECTED
[2021-09-29] MEDS ORDERED: Albuterol/Ipratropium 3.0-0.5 MG/3 ML Neb Soln NEB ONE (08:57)
== END 2021-09-29 10:20 | disposition home or self-care (01) ==
LOC: MW.ED 08:22
DX: G89.18 Other acute postprocedural pain (principal); M25.561 Pain in right knee; Z88.2 Allergy status to sulfonamides; Z88.1 Allergy status to other antibiotic agents; Z79.82 Long term (current) use of aspirin; Z79.899 Other long term (current) drug therapy
CPT/HCPCS: 96372; 99283; J1170; J7620-GY

== ENCOUNTER 2022-03-08 14:15 | Emergency (ER) | payer BC, OTHER ==
[2022-03-08] MEDS ORDERED: Acetaminophen/oxyCODONE 325-5 MG Tab PO ONE (14:33)
[2022-03-08] MEDS ORDERED: Ibuprofen 600 MG Tab PO ONE (14:33)
== END 2022-03-08 15:33 | disposition home or self-care (01) ==
LOC: MW.ED 14:15
DX: M79.604 Pain in right leg (principal); Z79.899 Other long term (current) drug therapy; Z88.2 Allergy status to sulfonamides; Z88.8 Allergy status to other drugs, medicaments and biological substances
CPT/HCPCS: 73562; 93971; 99284; A9270

== ENCOUNTER 2023-09-26 18:19 | Emergency (ER) | payer BC ==
[2023-09-26] MEDS ORDERED: Ibuprofen 600 MG Tab PO ONE (20:18)
[2023-09-26] MEDS ORDERED: Lidocaine 4% 1 each Patch TOP PRN (20:19)
[2023-09-26] MEDS ORDERED: Acetaminophen 325 MG Tab PO ONE (20:19)
== END 2023-09-26 21:56 | disposition home or self-care (01) ==
LOC: MW.ED 18:19
DX: M25.512 Pain in left shoulder (principal); J45.909 Unspecified asthma, uncomplicated; Z79.899 Other long term (current) drug therapy; Z88.1 Allergy status to other antibiotic agents; Z88.2 Allergy status to sulfonamides
CPT/HCPCS: 73000; 73030; 99283; A9270

== ENCOUNTER 2024-07-04 21:41 | Emergency (ER) | payer BC ==
[2024-07-04] MEDS: Acetaminophen/oxyCODONE 325-5 MG Tab PO ONE (22:49)
== END 2024-07-04 23:19 | disposition home or self-care (01) ==
LOC: MW.ED 21:41
DX: M25.512 Pain in left shoulder (principal); Z88.1 Allergy status to other antibiotic agents; Z88.2 Allergy status to sulfonamides; Z79.899 Other long term (current) drug therapy; Z75.8 Other problems related to medical facilities and other health care
CPT/HCPCS: 99283; A9270-GY